=== PATIENT | male | born 1950 | race Caucasian/White ===

== ENCOUNTER 2017-03-02 09:00 | Inpatient (IN) ==
[2017-03-02] MEDS ORDERED: SODIUM CHLORIDE 0.9% 1,000 ML IV STA (09:18)
--- NOTE | 2017-03-02 09:27 | Emergency Department Note ---
Sukhdev Parker Gwan, am scribing for, and in the presence of, Juan José Paul MD 09:22 . Beverly Parker James D, MD, personally performed the services described in this documentation, ascribed by Charito Santizo in my presence, and it is both accurate and complete 926 . Arrival - Arrival Chief Complaint: Fall Stated Complaint: fall ED Nursing Triage Note: Pt states that he tripped and fell on his walker during the night - pt states that he was on the floor for several hours and states that he was found by his phone manager - pt is awake and alert at time of arrival and denies any pain Mode of Arrival: Stretcher Limitations: No Limitations Source: Patient, Old Records Reviewed, RN Notes Reviewed Time Seen by Provider: 03/02/17 09:15 - History of Present Illness HPI Narrative: Patient is an ill appearing 66 y/o white male who presents to the ED for further evaluation s/p fall at home last night. Patient stated that he tripped over his walker and causing him to injure bilateral knees. He confirmed that he was on the floor for several hours until his phone manager found him and alerted EMS. He denies any dysuria or pain in his hips. He confirmed that he has generalized soreness. Patient is followed by Dr. Blandon for Parkinson's Disease and his PCP is Dr. Douglas. No other problems/complaints reported in ED. Onset (ago): hour(s) Consistency: constant Severity: moderate Allergies/Adverse Reactions: Allergies Allergy/AdvReac Type Severity Reaction Status Date / Time acetaminophen Allergy RASH Verified 05/01/16 06:22 [From Darvocet-N] azithromycin [From Zithromax] Allergy RASH Verified 05/01/16 06:22 clarithromycin [From Biaxin] Allergy RASH Verified 03/02/17 09:07 Penicillins Allergy RASH Verified 05/01/16 06:22 propoxyphene Allergy RASH Verified 05/01/16 06:22 [From Darvocet-N] Sulfa (Sulfonamide Allergy RASH Verified 05/01/16 06:22 Antibiotics) sulfamethoxazole Allergy RASH Verified 05/01/16 06:22 [From Bactrim] trimethoprim [From Bactrim] Allergy RASH Verified 05/01/16 06:22 codeine AdvReac Unknown/Unable Verified 05/01/16 06:22 to obtain Zolpidem [From Ambien] AdvReac Hallucinati Verified 05/01/16 06:22 ng Home Medications: Home Medications Medication Instructions Recorded Confirmed Type Ezetimibe [Zetia] 10 mg PO DAILY 02/03/15 10/31/16 History Levothyroxine Sodium 112 mcg PO DAILY 02/03/15 10/31/16 History buPROPion XL [Wellbutrin Xl] 300 mg PO QAM 02/03/15 10/31/16 History Multivitamin [Multivitamins] 1 each PO DAILY 05/01/16 10/31/16 History Carbidopa/Levodopa Cr 50-200 1 tablet PO TID #90 tablet 05/06/16 10/31/16 Rx [Sinemet Cr 50-200] Docusate Sodium Cap [Colace Cap] 100 mg PO BID capsule 05/06/16 10/31/16 Rx Pramipexole [Mirapex] 1 mg PO TID #90 tablet 05/06/16 10/31/16 Rx Rasagiline [Azilect] 1 mg PO DAILY #60 tablet 05/06/16 10/31/16 Rx Spironolactone [Aldactone] 25 mg PO BID #60 tablet 10/30/16 10/31/16 Rx Ascorbic Acid Tab [Vitamin C Tab] 500 mg PO QAM 10/31/16 10/31/16 History Aspirin EC Tab 81 mg PO QAM 10/31/16 10/31/16 History Furosemide [Furosemide] 20 mg PO DAILY PRN 10/31/16 10/31/16 History Tamsulosin HCl 0.4 mg PO 1600 10/31/16 10/31/16 History traZODone [Desyrel] 50 mg PO BEDTIME 10/31/16 10/31/16 History Doxycycline Hyclate 100 mg PO BID #20 capsule 01/14/17 Rx Ondansetron Odt Tab [Zofran Odt] 4 mg PO Q8H PRN #10 tablet 01/14/17 Rx Review of System - Review of System 12 point system: reviewed and no additional remarkable complaints except as stated - Review of System Constitutional: Absent: chills, fever Eyes: Absent: discharge Head/Ears/Nose/Throat: Absent: earache Respiratory: Absent: cough Cardiovascular: Absent: chest pain Gastrointestinal: Absent: abdominal pain, nausea, vomiting, diarrhea Genitourinary male: Absent: urgency, frequency Musculoskeletal: Present: as per HPI, other (both knees ). Absent: arm pain, back pain, leg pain, neck pain Medical,Surgical,& Family Hx - Medical History Cardio: History of: Hypertension Psychological: History of: Anxiety Disorders, Bipolar Disorder Neurology: History of: Brain Aneurysm, Parkinson's Disease No history of: Seizures Endocrine: History of: Thyroid Disorder (hypothyroidism) Rheumatology: History of;: Gout Respiratory: History of: Asthma Genitourinary: History of: Prostate Problems Gastrointestinal: History of: GERD Hematology: No history of: Blood Transfusion Reaction Other: No history of: Anesthesia Reactions, Cancer - Surgical History Cardiac Surgeries: Patient Denies: Cardiac Catheterization Thoracic Surgeries: Patient denies;: Organ Transplant, Lobectomy Neurologic Surgeries: Surgical HX of: Brain Aneurysm Patient denies: Neurologic Surgery HEENT Surgeries: Surgical HX of: Tonsilectomy & Adenoidectomy Patient denies: Eye Surgery Abdominal Surgeries: Surgical HX of: Cholecystectomy, Colonoscopy Reproductive Surgeries: Patient denies;: Genitourinary Surgery Orthopedic Surgeries: Patient denies;: Orthopedic Surgery - Family History Family History: Denies;: Family Anesthesia Reaction, Family Cancer, Family Diabetes, Family Heart Disease, Family Hypertension, Family Psychiatric Problems, Family Stroke - Social History Smoking Status: Former smoker Exam Physical Examination: GENERAL: This is a ill appearing white male in no apparent distress. VITAL SIGNS: HEENT: Head is normocephalic and atraumatic. Pupils are equally round and reactive to light. Extraocular movement are intact. Oropharynx is benign with dry mucous membranes. NECK: Neck is soft and supple without tenderness. There are no masses. There is no lymphadenopathy. LUNGS: Lungs are clear to auscultation bilaterally. Chest rises symmetrically. There is no chest wall tenderness. CV: Heart is regular rate and rhythm without murmurs, rubs, or gallops. ABDOMEN: Abdomen is soft, non-tender to palpation. There are no abnormal masses palpated. There is no organomegaly. Bowel sounds are present and active. SKIN: Skin is warm and dry. No rash. EXTREMITIES: Patient has full range of motion without tenderness. Patient has erythema to bilateral knees. Heel cord shortening bilaterally. NEUROLOGIC: Awake, alert, and oriented x4. Cranial nerves II through XII are grossly intact. There are no motorsensory deficits. Muscle stiffness bilaterally. PSYCHIATRIC: Normal affect. Normal mood. Vital Signs: Vital Signs Temperature 99.1 F 03/02/17 09:29 Pulse Rate 104 H 03/02/17 09:29 Respiratory Rate 20 03/02/17 09:29 Blood Pressure 144/99 03/02/17 09:29 O2 Sat by Pulse Oximetry 94 L 03/02/17 09:22 Course - Consultations Consultation #1: Discussed with Dr. Douglas. Patient will be admitted to his service. Time: 13:22 Results - Labs CBC & BMP: 03/02/17 09:38 03/02/17 09:38 Lab Results: I have reviewed the patients labs Labs: Laboratory Tests 03/02/17 03/02/17 09:38 09:38 WBC 13.1 H RBC 3.95 Hgb 12.2 L Hct 36.2 L Plt Count 410 H MPV 8.8 L Neut % (Auto) 81.1 H Lymph % (Auto) 9.5 L Neut # (Auto) 10.6 H Lymph # (Auto) 1.2 L Dillon # (Auto) 1.0 H Urine pH 5.0 Ur Specific [place] 1.014 Urine Blood Moderate Urine Urobilinogen < 2.0 H Urine RBC 4 Urine WBC 1 Laboratory Tests 03/02/17 09:38 Sodium 139 Potassium 3.7 Chloride 104 Carbon Dioxide 26 BUN 17 Creatinine 1.00 Glucose 109 H Disposition Clinical Impression: Parkinsons disease, Fall at home, Dehydration Case discussed with: patient Disposition: Still a Patient Condition: Stable
[2017-03-02 10:00] LABS: Basophils # 0.1 10*3/uL (0.0-0.2); Basophils % 0.5 % (0.0-0.8); Eosinophils # 0.1 10*3/uL (0.0-0.87); Eosinophils % 0.6 % (0.00-10.9); Hematocrit 36.2 VOL% (42.0-52.0); Hemoglobin 12.2 GM/DL (14.0-18.0); Immature Granulocytes % 0.4 %; Immature Granulocytes Absolute 0.05 #; Lymphocytes # 1.2 10*3/uL (1.4-4.0); Lymphocytes % 9.5 % (21.2-54.2); Mean Corpuscular HGB Conc 33.7 GM/DL (32-36); Mean Corpuscular Hemoglobin 31 PG (27-34); Mean Corpuscular Volume 91.6 FL (87-102); Mean Platelet Volume 8.8 FL (9.6-12.0); Monocytes % 7.9 % (1.7-12.7); Neutrophils # 10.6 10*3/uL (1.4-7.4); Neutrophils % 81.1 % (38.7-73.9); Platelet Count 410 T/CUMM (130-400); Red Blood Count 3.95 MC/CUMM (3.8-5.5); Red Cell Distribution Width 14.5 % (9.3-17.3); White Blood Count 13.1 T/CUMM (4-12)
[2017-03-02 10:08] LABS: Apearance,Urine CLEAR (Clear); Bilirubin,Urine Negative (Negative); Blood, Urine Moderate mg/dL (Negative); Glucose,Urine (UA) Negative (Negative); Ketones,Urine Negative (Negative); Mucus,Urine Occasional /LPF (Occasional); Nitrite,Urine Negative (Negative); Protein,Urine Negative; RBC,Urine 4 /HPF (0-4); Squamous Epithelial Cell,Urine Occasional /HPF (0-10); Urine Color Yellow (Yellow); Urine Specific Gravity 1.014 (1.001-1.035); Urine Urobilinogen < 2.0 EU/DL (0.2-1.0); WBC,Urine 1 /HPF (0-6)
[2017-03-02 10:29] LABS: Calcium 9.3 MG/DL (8.5-10.1); Osmolality,Calculated 279.5 MOS/KG (273-304); Potassium 3.7 MMOL/L (3.5-5.1)
[2017-03-02] MEDS ORDERED: ONDANSETRON 4 MG/2 ML VIAL IV STA (11:12)
[2017-03-02] MEDS ORDERED: ONDANSETRON 4 MG/2 ML VIAL ONE (11:12)
[2017-03-02] MEDS ORDERED: ONDANSETRON 4 MG/2 ML VIAL IV PRN (15:23)
[2017-03-02] MEDS ORDERED: ACETAMINOPHEN 325 MG TABLET PO PRN (15:23)
[2017-03-02] MEDS: SODIUM CHLORIDE 0.9% 1,000 ML IV SCH (17:00)
[2017-03-02] MEDS: ENOXAPARIN 40 MG/0.4 ML SYRINGE SUBCUT SCH (17:55)
[2017-03-02] MEDS: DOCUSATE SODIUM 100 MG CAPSULE PO SCH (20:37)
--- NOTE | 2017-03-02 21:05 | Family Practice History&Phys ---
Assessment and Plan (1) Dehydration Status: Acute Assessment and plan: 03/02/2017: We are going to hydrate him gingerly. Current Visit: Yes (2) Fall at home Status: Acute Assessment and plan: 614 17: [facility] will [facility] as he needs to be in 1 Current Visit: Yes (3) Parkinsons disease Status: Acute Assessment and plan: 614 something: Having an exacerbation and we will continue Sinemet at this time Current Visit: Yes (4) Knee pain Status: Acute Assessment and plan: 03/02/2017: Knee pain is mainly carpet canales. There is no exposed skin deeper and no bleeding Current Visit: No History of Present Illness Chief complaint: fall, severe Parkinson's disease History of present illness: Mr. Salomon is a 66 year old male Well-known to me seen in my clinic on multiple occasions. He fell earlier today and it was about 2 hours on the ground. He states that he does not hurt except on his knees where he scraped the carpet. He is somewhat rigid secondary to his Parkinson's. He has had episodes of severe exacerbations/ remissions related to this disease and he is continuing to basically deteriorate. He has remaining cognitive for the most part but it is my feelings as I told him in the past that he should be admitted to area that can monitor him closely. He is living at home by himself now with fairly regular sitters coming in to assist him with care but he needs more than this. Nonetheless he is not having any chest pain or shortness of breath. It is noted that his white count is up to 13,000 and he does have a febrile illness as well. We will put him on antibiotics. His psychologist social to look at discharge planning possibly for [facility] which is where he wants to go although I do not know whether he qualifies for that. Is not having any nausea vomiting or diarrhea. Patient does have diaper on at present. Home Medications Medication Instructions Recorded Confirmed Type Ezetimibe [Zetia] 10 mg PO QPM 02/03/15 03/02/17 History Levothyroxine Sodium 112 mcg PO DAILY 02/03/15 03/02/17 History buPROPion XL [Wellbutrin Xl] 300 mg PO QAM 02/03/15 03/02/17 History Multivitamin [Multivitamins] 2 each PO DAILY 05/01/16 03/02/17 History Carbidopa/Levodopa Cr 50-200 1 tablet PO TID #90 tablet 05/06/16 03/02/17 Rx [Sinemet Cr 50-200] Pramipexole [Mirapex] 1 mg PO TID #90 tablet 05/06/16 03/02/17 Rx Rasagiline [Azilect] 1 mg PO DAILY #60 tablet 05/06/16 03/02/17 Rx Aspirin EC Tab 81 mg PO QAM 10/31/16 03/02/17 History Tamsulosin HCl 0.4 mg PO 1600 10/31/16 03/02/17 History traZODone [Desyrel] 50 mg PO BEDTIME 10/31/16 03/02/17 History Acetaminophen Tab [Tylenol Tab] 500 mg PO Q4H 03/02/17 03/02/17 History Docusate Sodium Cap [Colace Cap] 100 mg PO QPM 03/02/17 03/02/17 History Multivitamin [Multivitamins] 2 tablet PO DAILY 03/02/17 03/02/17 History Allergies Allergy/AdvReac Type Severity Reaction Status Date / Time acetaminophen Allergy RASH Verified 05/01/16 06:22 [From Darvocet-N] azithromycin [From Zithromax] Allergy RASH Verified 05/01/16 06:22 clarithromycin [From Biaxin] Allergy RASH Verified 03/02/17 09:07 Penicillins Allergy RASH Verified 05/01/16 06:22 propoxyphene Allergy RASH Verified 05/01/16 06:22 [From Darvocet-N] Sulfa (Sulfonamide Allergy RASH Verified 05/01/16 06:22 Antibiotics) sulfamethoxazole Allergy RASH Verified 05/01/16 06:22 [From Bactrim] trimethoprim [From Bactrim] Allergy RASH Verified 05/01/16 06:22 codeine AdvReac Unknown/Unable Verified 05/01/16 06:22 to obtain Zolpidem [From Ambien] AdvReac Hallucinati Verified 05/01/16 06:22 ng 12 point system: reviewed and no additional remarkable complaints except as stated - Constitutional Constitutional: Present: fatigue - EENT Eyes: Absent: blurry vision Ears: Absent: ear pain Nose, mouth and throat: Absent: neck mass - Cardiovascular Cardiovascular: Absent: claudication - Respiratory Respiratory: Present: snoring. Absent: wheezing - Gastrointestinal Gastrointestinal: Absent: abdominal pain, fecal incontinence - Genitourinary Genitourinary: Absent: dysuria, scrotal swelling - Musculoskeletal Musculoskeletal: Absent: arthralgias - Neurological Neurological: Present: frequent falls. Absent: abnormal speech Medical,Surgical,& Family Hx - Medical History Cardio: History of: Hypertension Psychological: History of: Anxiety Disorders, Bipolar Disorder Neurology: History of: Brain Aneurysm, Parkinson's Disease No history of: Seizures Endocrine: History of: Thyroid Disorder (hypothyroidism) Rheumatology: History of;: Gout Respiratory: History of: Asthma Genitourinary: History of: Prostate Problems Gastrointestinal: History of: GERD Hematology: No history of: Blood Transfusion Reaction Other: No history of: Anesthesia Reactions, Cancer - Surgical History Cardiac Surgeries: Patient Denies: Cardiac Catheterization Thoracic Surgeries: Patient denies;: Organ Transplant, Lobectomy Neurologic Surgeries: Surgical HX of: Brain Aneurysm Patient denies: Neurologic Surgery HEENT Surgeries: Surgical HX of: Tonsilectomy & Adenoidectomy Patient denies: Eye Surgery Abdominal Surgeries: Surgical HX of: Cholecystectomy, Colonoscopy Reproductive Surgeries: Patient denies;: Genitourinary Surgery Orthopedic Surgeries: Patient denies;: Orthopedic Surgery - Family History Family History: Denies;: Family Anesthesia Reaction, Family Cancer, Family Diabetes, Family Heart Disease, Family Hypertension, Family Psychiatric Problems, Family Stroke - Social History Smoking Status: Former smoker Frequency of Alcohol Use: None Type of Drug Use: None Exam - Constitutional Vitals: Period Temp Pulse Resp BP Sys/Johns Pulse Ox Last 24 Hr 99.1 F-100.4 F 95-112 20-27 113-177/59-108 90-98 Exam: Generally average sized man. He is alert he does answer all questions appropriately but he got severe Parkinson's and is having an exacerbation with significant rigidity. HEENT neck is supple trachea midline no difficulty with breathing Lungs clear except for a few basal rales Cardiovascular rate regular no gallop or rub there is 1/6 systolic ejection murmur Abdomen soft nondistended Extremities some mild generalized edema but no significant rashes appreciated does have PVD goes on. Results - Labs CBC & BMP: 03/02/17 09:38 03/02/17 09:38
[2017-03-02] MEDS: cefTRIAXone 1,000 MG in SODIUM CHLORIDE 0.9% 100 ML IV SCH (23:31)
[2017-03-02] MEDS: traZODone 50 MG TABLET PO SCH (23:31)
[2017-03-03] MEDS: SODIUM CHLORIDE 0.9% 1,000 ML IV SCH ×3 (06:51→18:20)
[2017-03-03] MEDS: LEVOTHYROXINE 112 MCG TABLET PO SCH (06:51)
[2017-03-03] MEDS ORDERED: COLCHICINE 0.6 MG TABLET PO ONE (08:04)
--- NOTE | 2017-03-03 08:41 | Family Practice Progress Note ---
Family Practice - PN: Subj Interval history: Patient seen this morning. He is very alert and oriented still having difficulty moving in bed. He is unable to get out of the bed at this time and having Parkinson's exacerbation. Does feel a little warm his temperature slightly up and about 99.8. He has fairly severe pain in his left ankle which may be gout. I do plan on checking uric acid on him but in the meantime we will give him a steroid and wound cultures and see if this will help. No nausea vomiting or diarrhea. He admits he is eating well with assistance. Denies any chest pain or shortness of breath at present. Patient is very dependent. We are going to get social worker clinical to assist us with placement. I do not again think the patient should go home Exam (Progress Note) - Constitutional Vitals: Period Temp Pulse Resp BP Sys/Johns Pulse Ox Last 24 Hr 96.6 F-100.4 F 95-112 18-27 113-177/59-108 90-98 Exam: Generally average sized man. He is alert he does answer all questions appropriately but he continues to have severe Parkinson's and is having an exacerbation with significant rigidity. HEENT neck is supple trachea midline no difficulty with breathing Lungs clear except for a few basal rales Cardiovascular rate regular no gallop or rub there is 1/6 systolic ejection murmur Abdomen soft nondistended Extremities some mild generalized edema but no significant rashes appreciated. Patient does have soreness of his left ankle in particular. I am concerned he may have gout or inflammatory arthritis. Results - Labs CBC & BMP: 03/02/17 09:38 03/02/17 09:38 Assessment and Plan (1) Dehydration Status: Acute Assessment and plan: 03/02/2017: We are going to hydrate him gingerly. 03/03/2017. This is improving significantly. The patient is now taking fluids on his own Current Visit: Yes (2) Fall at home Status: Acute Assessment and plan: 614 17: Teresa will accept placement in a retirement as he needs to be in 1 03/03/2017: Patient is still has a little knee pain but not as bad. He is complaining of pain in his left ankle as noted above. He states he did not hurt the ankle in the fall the looks like inflammation secondary to an arthritic process Current Visit: Yes (3) Parkinsons disease Status: Acute Assessment and plan: 614 something: Having an exacerbation and we will continue Sinemet at this time 03/03/2017 this is chronic and waxes and wanes Current Visit: Yes (4) Knee pain Status: Resolved Assessment and plan: 03/02/2017: Knee pain is mainly carpet canales. There is no exposed skin deeper and no bleeding Current Visit: No (5) Inflammatory arthritis Status: Acute Assessment and plan: 03/03/2017: None given patient steroid and culture sensitivity we cannot get this under control Current Visit: Yes
[2017-03-03] MEDS: PANTOPRAZOLE 40 MG TABLET PO SCH (10:46)
[2017-03-03] MEDS: PRAMIPEXOLE 1 MG TABLET PO SCH ×3 (10:47→20:52)
[2017-03-03] MEDS: RASAGILINE 0.5 MG TABLET PO SCH (10:47)
[2017-03-03] MEDS: ASPIRIN EC 81 MG TABLET PO SCH (10:48)
[2017-03-03] MEDS: MULTIVITAMIN (CENTRUM) TABLET PO SCH (10:48)
[2017-03-03] MEDS: DOCUSATE SODIUM 100 MG CAPSULE PO SCH ×2 (10:49→20:53)
[2017-03-03] MEDS: methylPREDNISolone SOD SUC 125 MG/2 ML VIAL IV SCH ×2 (10:50→16:32)
[2017-03-03] MEDS: CARBIDOPA/LEVODOPA CR 50-200 MG TABLET PO SCH ×3 (11:58→20:52)
[2017-03-03] MEDS: TAMSULOSIN 0.4 MG CAPSULE PO SCH (16:31)
[2017-03-03] MEDS: ENOXAPARIN 40 MG/0.4 ML SYRINGE SUBCUT SCH (16:31)
[2017-03-03] MEDS: EZETIMIBE 10 MG TABLET PO SCH (18:16)
[2017-03-03] MEDS: traZODone 50 MG TABLET PO SCH (20:52)
[2017-03-03] MEDS: cefTRIAXone 1,000 MG in SODIUM CHLORIDE 0.9% 100 ML IV SCH (20:59)
[2017-03-04] MEDS: methylPREDNISolone SOD SUC 125 MG/2 ML VIAL IV SCH ×3 (02:22→16:35)
[2017-03-04] MEDS: SODIUM CHLORIDE 0.9% 1,000 ML IV SCH ×3 (02:23→16:34)
[2017-03-04] MEDS: LEVOTHYROXINE 112 MCG TABLET PO SCH (06:14)
[2017-03-04 06:28] LABS: Basophils % 0.1 % (0.0-0.8); Hematocrit 34.5 VOL% (42.0-52.0); Hemoglobin 11.3 GM/DL (14.0-18.0); Immature Granulocytes % 0.7 %; Immature Granulocytes Absolute 0.09 #; Lymphocytes # 0.9 10*3/uL (1.4-4.0); Lymphocytes % 6.8 % (21.2-54.2); Mean Corpuscular HGB Conc 32.8 GM/DL (32-36); Mean Corpuscular Hemoglobin 30 PG (27-34); Mean Corpuscular Volume 92.5 FL (87-102); Mean Platelet Volume 9.2 FL (9.6-12.0); Monocytes # 0.6 10*3/uL (0.11-0.8); Monocytes % 4.3 % (1.7-12.7); Neutrophils # 11.8 10*3/uL (1.4-7.4); Neutrophils % 88.1 % (38.7-73.9); Platelet Count 378 T/CUMM (130-400); Red Blood Count 3.73 MC/CUMM (3.8-5.5); Red Cell Distribution Width 14.5 % (9.3-17.3); White Blood Count 13.4 T/CUMM (4-12)
[2017-03-04 07:13] LABS: Calcium 8.8 MG/DL (8.5-10.1); Magnesium 2.3 MG/DL (1.8-2.4); Osmolality,Calculated 281.5 MOS/KG (273-304); Uric Acid 8.4 MG/DL (3.5-7.2)
[2017-03-04] MEDS: ASPIRIN EC 81 MG TABLET PO SCH (09:15)
[2017-03-04] MEDS: CARBIDOPA/LEVODOPA CR 50-200 MG TABLET PO SCH ×3 (09:15→22:06)
[2017-03-04] MEDS: MULTIVITAMIN (CENTRUM) TABLET PO SCH (09:15)
[2017-03-04] MEDS: PANTOPRAZOLE 40 MG TABLET PO SCH (09:15)
[2017-03-04] MEDS: RASAGILINE 0.5 MG TABLET PO SCH (09:15)
[2017-03-04] MEDS: DOCUSATE SODIUM 100 MG CAPSULE PO SCH ×2 (09:15→22:06)
[2017-03-04] MEDS: PRAMIPEXOLE 1 MG TABLET PO SCH ×3 (09:15→22:05)
--- NOTE | 2017-03-04 13:31 | Family Practice Progress Note ---
Family Practice - PN: Subj Interval history: Patient seen this morning. We had long discussion concerning his disposition. He is still getting physical and occupational therapy. We are trying to make so that he can either go back home or car, and rehabilitation but I suspect she is going to need some kind of swelling been/rehabilitation situation before he makes at home. We've had this issue on the past on multiple occasions. I really don't think he needs to be going back home, but he is very cognitive and insists not to be put in a senior living or other long-term unit. Nonetheless, vital signs are stable. He does have a slight elevation of white count 13.4 but he is getting steroids which are probably contributing this. I do have him on antibiotics. I'm going to decrease the steroid dose. We are going to continue physical therapy at this time and maintain other current medications Exam (Progress Note) - Constitutional Vitals: Period Temp Pulse Resp BP Sys/Johns Pulse Ox Last 24 Hr 97.5 F-100 F 83-101 14-20 115-143/65-84 87-93 Exam: Generally average sized man. He is alert and continues to have severe Parkinson 's and is very slowly improving with symptoms HEENT neck is supple trachea midline no difficulty with breathing Lungs clear except for a few basal rales Cardiovascular rate regular no gallop or rub there is 1/6 systolic ejection murmur Abdomen soft nondistended Extremities some mild generalized edema but no significant rashes appreciated. Left ankle is some improved. Results - Labs CBC & BMP: 03/04/17 04:47 03/04/17 04:47 Assessment and Plan (1) Dehydration Status: Acute Assessment and plan: 03/02/2017: We are going to hydrate him gingerly. 03/03/2017. This is improving significantly. The patient is now taking fluids on his own. 03/04/17: Better hydrated. We'll decrease or even stop IV fluids soon Current Visit: Yes (2) Fall at home Status: Acute Assessment and plan: 614 17: Teresa will accept placement in a senior living as he needs to be in 1 03/03/2017: Patient is still has a little knee pain but not as bad. He is complaining of pain in his left ankle as noted above. He states he did not hurt the ankle in the fall the looks like inflammation secondary to an arthritic process. 03/04/17: Patient is very high risk fall and if he is not willing to go to a swing bed/senior living will discharge him AGAINST MEDICAL ADVICE to his home Current Visit: Yes (3) Parkinsons disease Status: Acute Assessment and plan: 614 something: Having an exacerbation and we will continue Sinemet at this time 03/03/2017 this is chronic and waxes and wanes. 03/04/17. Patient is slowly improving from this acute exacerbation Current Visit: Yes (4) Knee pain Status: Resolved Assessment and plan: 03/02/2017: Knee pain is mainly carpet canales. There is no exposed skin deeper and no bleeding. 03/04/17. The knees are not hurting. There is much as they were 2 days ago Current Visit: No (5) Inflammatory arthritis Status: Acute Assessment and plan: 03/03/2017: None given patient steroid and culture sensitivity we cannot get this under control Current Visit: Yes
[2017-03-04] MEDS: TAMSULOSIN 0.4 MG CAPSULE PO SCH (15:18)
[2017-03-04] MEDS: ENOXAPARIN 40 MG/0.4 ML SYRINGE SUBCUT SCH (15:19)
[2017-03-04] MEDS: EZETIMIBE 10 MG TABLET PO SCH (18:22)
[2017-03-04] MEDS: traZODone 50 MG TABLET PO SCH (22:05)
[2017-03-04] MEDS: cefTRIAXone 1,000 MG in SODIUM CHLORIDE 0.9% 100 ML IV SCH (22:06)
[2017-03-05] MEDS: methylPREDNISolone SOD SUC 125 MG/2 ML VIAL IV SCH ×3 (01:40→15:35)
[2017-03-05] MEDS: SODIUM CHLORIDE 0.9% 1,000 ML IV SCH ×3 (01:44→17:13)
[2017-03-05] MEDS ORDERED: ACETAMINOPHEN 500 MG TABLET PO PRN (03:27)
[2017-03-05] MEDS: LEVOTHYROXINE 112 MCG TABLET PO SCH (07:23)
[2017-03-05] MEDS: RASAGILINE 0.5 MG TABLET PO SCH (08:59)
[2017-03-05] MEDS: MULTIVITAMIN (CENTRUM) TABLET PO SCH (08:59)
[2017-03-05] MEDS: PANTOPRAZOLE 40 MG TABLET PO SCH (08:59)
[2017-03-05] MEDS: DOCUSATE SODIUM 100 MG CAPSULE PO SCH ×2 (08:59→22:38)
[2017-03-05] MEDS: CARBIDOPA/LEVODOPA CR 50-200 MG TABLET PO SCH ×3 (08:59→22:38)
[2017-03-05] MEDS: ASPIRIN EC 81 MG TABLET PO SCH (08:59)
[2017-03-05] MEDS: PRAMIPEXOLE 1 MG TABLET PO SCH ×3 (08:59→22:38)
--- NOTE | 2017-03-05 12:09 | Family Practice Progress Note ---
Family Practice - PN: Subj Interval history: Patient seen this morning. He is doing some better. He is actually sitting up in the chair and is already eaten breakfast. He is alert and oriented answers all questions appropriately is very cognitive. No fever chills nausea vomiting or diarrhea states she is much improved. Parkinson's symptoms have quelled somewhat. We will continue to monitor Exam (Progress Note) - Constitutional Vitals: Period Temp Pulse Resp BP Sys/Johns Pulse Ox Last 24 Hr 96.8 F-98.5 F 75-90 16-22 119-168/60-94 92-97 Exam: Generally average sized man. He is alert and continues to have Parkinson's, but it has gotten significantly better today HEENT neck is supple trachea midline no difficulty with breathing Lungs clear except for a few basal rales Cardiovascular rate regular no gallop or rub there is 1/6 systolic ejection murmur Abdomen soft nondistended Extremities some mild generalized edema but no significant rashes appreciated. Left ankle is some improved. Results - Labs CBC & BMP: 03/04/17 04:47 03/04/17 04:47 Assessment and Plan (1) Dehydration Status: Acute Assessment and plan: 03/02/2017: We are going to hydrate him gingerly. 03/03/2017. This is improving significantly. The patient is now taking fluids on his own. 03/04/17: Better hydrated. We'll decrease or even stop IV fluids soon Current Visit: Yes (2) Fall at home Status: Acute Assessment and plan: 614 17: Teresa will accept placement in a long term as he needs to be in 1 03/03/2017: Patient is still has a little knee pain but not as bad. He is complaining of pain in his left ankle as noted above. He states he did not hurt the ankle in the fall the looks like inflammation secondary to an arthritic process. 03/04/17: Patient is very high risk fall and if he is not willing to go to a swing bed/long term will discharge him AGAINST MEDICAL ADVICE to his home Current Visit: Yes (3) Parkinsons disease Status: Acute Assessment and plan: 614 something: Having an exacerbation and we will continue Sinemet at this time 03/03/2017 this is chronic and waxes and wanes. 03/04/17. Patient is slowly improving from this acute exacerbation [id number]. Parkinson's is improving. We are going to have to get physical therapy to do a little further evaluation. May need another day to evaluate whether he needs swelling better not Current Visit: Yes (4) Inflammatory arthritis Status: Acute Assessment and plan: 03/03/2017: None given patient steroid and culture sensitivity we cannot get this under control Current Visit: Yes
[2017-03-05] MEDS: TAMSULOSIN 0.4 MG CAPSULE PO SCH (15:27)
[2017-03-05] MEDS: ENOXAPARIN 40 MG/0.4 ML SYRINGE SUBCUT SCH (15:27)
[2017-03-05] MEDS: EZETIMIBE 10 MG TABLET PO SCH (18:16)
[2017-03-05] MEDS: cefTRIAXone 1,000 MG in SODIUM CHLORIDE 0.9% 100 ML IV SCH (22:37)
[2017-03-05] MEDS: traZODone 50 MG TABLET PO SCH (22:38)
[2017-03-06] MEDS: methylPREDNISolone SOD SUC 125 MG/2 ML VIAL IV SCH ×3 (00:55→17:15)
[2017-03-06] MEDS: SODIUM CHLORIDE 0.9% 1,000 ML IV SCH ×3 (00:57→15:20)
[2017-03-06 02:41] LABS: Basophils % 0.1 % (0.0-0.8); Hematocrit 35.9 VOL% (42.0-52.0); Hemoglobin 11.6 GM/DL (14.0-18.0); Immature Granulocytes % 0.9 %; Immature Granulocytes Absolute 0.13 #; Lymphocytes # 1.1 10*3/uL (1.4-4.0); Lymphocytes % 7.4 % (21.2-54.2); Mean Corpuscular HGB Conc 32.3 GM/DL (32-36); Mean Corpuscular Hemoglobin 30 PG (27-34); Mean Corpuscular Volume 92.5 FL (87-102); Mean Platelet Volume 9.2 FL (9.6-12.0); Monocytes # 0.6 10*3/uL (0.11-0.8); Monocytes % 4.1 % (1.7-12.7); Neutrophils % 87.5 % (38.7-73.9); Platelet Count 433 T/CUMM (130-400); Red Blood Count 3.88 MC/CUMM (3.8-5.5); Red Cell Distribution Width 14.7 % (9.3-17.3); White Blood Count 14.8 T/CUMM (4-12)
[2017-03-06 03:08] LABS: Calcium 8.2 MG/DL (8.5-10.1); Magnesium 2.3 MG/DL (1.8-2.4); Potassium 4.4 MMOL/L (3.5-5.1)
[2017-03-06] MEDS: LEVOTHYROXINE 112 MCG TABLET PO SCH (06:10)
[2017-03-06] MEDS: CARBIDOPA/LEVODOPA CR 50-200 MG TABLET PO SCH ×3 (09:43→20:17)
[2017-03-06] MEDS: RASAGILINE 0.5 MG TABLET PO SCH (09:43)
[2017-03-06] MEDS: MULTIVITAMIN (CENTRUM) TABLET PO SCH (09:43)
--- NOTE | 2017-03-06 09:43 | Family Practice Progress Note ---
Family Practice - PN: Subj Interval history: Patient seen this morning continues to improve. His blood pressure still high and will going to add losartan his regimen. He is starting to have decreasing symptoms of Parkinson's. We are going to decrease his steroid dose to daily. Does have a little wheezing, however nothing to put him on some duo nebs. Exam (Progress Note) - Constitutional Vitals: Period Temp Pulse Resp BP Sys/Johns Pulse Ox Last 24 Hr 97.4 F-97.6 F 73-98 18-22 116-169/76-107 92-97 Exam: Physical exam is mostly unchanged from yesterday except the patient is getting a little stronger. Does have a little wheezing respiratory fischer and I am going to start him on some DuoNeb Results - Labs CBC & BMP: 03/06/17 01:59 03/06/17 01:59 Assessment and Plan (1) Dehydration Status: Acute Assessment and plan: 03/02/2017: We are going to hydrate him gingerly. 03/03/2017. This is improving significantly. The patient is now taking fluids on his own. 03/04/17: Better hydrated. We'll decrease or even stop IV fluids soon Current Visit: Yes (2) Fall at home Status: Acute Assessment and plan: 614 17: Teresa will accept placement in a [facility] as he needs to be in 1 03/03/2017: Patient is still has a little knee pain but not as bad. He is complaining of pain in his left ankle as noted above. He states he did not hurt the ankle in the fall the looks like inflammation secondary to an arthritic process. 03/04/17: Patient is very high risk fall and if he is not willing to go to a swing bed/usp will discharge him AGAINST MEDICAL ADVICE to his home 03/06/2017 much improved his knee pain is better Current Visit: Yes (3) Parkinsons disease Status: Acute Assessment and plan: 614 something: Having an exacerbation and we will continue Sinemet at this time 03/03/2017 this is chronic and waxes and wanes. 03/04/17. Patient is slowly improving from this acute exacerbation 7016. Parkinson's is improving. We are going to have to get physical therapy to do a little further evaluation. May need another day to evaluate whether he needs swelling better not Current Visit: Yes (4) Inflammatory arthritis Status: Acute Assessment and plan: 03/03/2017: None given patient steroid and culture sensitivity we cannot get this under control Current Visit: Yes (5) Wheezing Status: Acute Assessment and plan: 03/06/2017: Patient has improved but is wheezing some. Although he has been on steroids I do want to decrease the dose to normal. Will DuoNeb nebulizer Current Visit: Yes
[2017-03-06] MEDS: PRAMIPEXOLE 1 MG TABLET PO SCH ×3 (09:44→20:16)
[2017-03-06] MEDS ORDERED: ALBUTEROL/IPRATROPIUM 3 ML NEB RESP TX PRN (09:44)
[2017-03-06] MEDS: DOCUSATE SODIUM 100 MG CAPSULE PO SCH ×2 (09:44→20:17)
[2017-03-06] MEDS: PANTOPRAZOLE 40 MG TABLET PO SCH (09:44)
[2017-03-06] MEDS: ASPIRIN EC 81 MG TABLET PO SCH (09:44)
[2017-03-06] MEDS: ENOXAPARIN 40 MG/0.4 ML SYRINGE SUBCUT SCH (17:16)
[2017-03-06] MEDS: TAMSULOSIN 0.4 MG CAPSULE PO SCH (17:16)
[2017-03-06] MEDS: EZETIMIBE 10 MG TABLET PO SCH (18:56)
[2017-03-06] MEDS: traZODone 50 MG TABLET PO SCH (20:16)
[2017-03-06] MEDS: cefTRIAXone 1,000 MG in SODIUM CHLORIDE 0.9% 100 ML IV SCH (22:57)
[2017-03-07] MEDS: methylPREDNISolone SOD SUC 125 MG/2 ML VIAL IV SCH ×2 (01:27→08:32)
[2017-03-07] MEDS: LEVOTHYROXINE 112 MCG TABLET PO SCH (06:54)
[2017-03-07] MEDS ORDERED: cloNIDine 0.1 MG TABLET PO PRN (07:49)
[2017-03-07] MEDS: MULTIVITAMIN (CENTRUM) TABLET PO SCH (08:30)
[2017-03-07] MEDS: ASPIRIN EC 81 MG TABLET PO SCH (08:30)
[2017-03-07] MEDS: RASAGILINE 0.5 MG TABLET PO SCH (08:30)
[2017-03-07] MEDS: CARBIDOPA/LEVODOPA CR 50-200 MG TABLET PO SCH (08:31)
[2017-03-07] MEDS: DOCUSATE SODIUM 100 MG CAPSULE PO SCH (08:32)
[2017-03-07] MEDS: PRAMIPEXOLE 1 MG TABLET PO SCH (08:32)
[2017-03-07] MEDS: PANTOPRAZOLE 40 MG TABLET PO SCH (08:32)
[2017-03-07] MEDS ORDERED: METOPROLOL TARTRATE 25 MG TABLET PO SCH (09:00)
--- NOTE | 2017-03-07 13:25 | Discharge Summary ---
Hospital Course - Hospital Course Hospital Course: Patient came in to the hospital per EMS to the ER after having sustained a fall. He did have some superficial knee injuries but this resolved fairly quick. He has severe Parkinson's like symptoms with excessive tremor, stiffness and slow weaning actions. He was unable to stand at the time of admission. He has had these exacerbations and remissions of this disease in the past. I have tried to get him in to long-term care but he absolutely refuses and does so now. He is very cognitive and answers all questions. He was a little dehydrated when he was found and we gave him fluids. He also had during the course of hospitalization some hypertension which resolved with medication. He is in general fairly debilitated as mentioned nonetheless we will going to discharge him to swing bed for a while and then he can hopefully go back home to where he is getting some home health care as well as some sitters periodically. Diagnosis - Discharge Diagnosis (1) Dehydration Status: Acute (2) Fall at home Status: Acute (3) Parkinsons disease Status: Acute (4) Inflammatory arthritis Status: Acute (5) Wheezing Status: Acute Specialty Discharge - Follow Up or Referrals Follow up with: Marquise Douglas DO [Primary Care Provider] - (1 week post discharge from [facility] ) Discharge Plan - Discharge Data Disposition: Disch/Xfer-Ip Rehab Fac Condition at Discharge: Stable Discharge Diet: advance to your usual diet Activity: as per physical therapy, increase activity as tolerated Hygiene: no restrictions Weight Bearing at Discharge: weight bear as tolerated Driving: other (doesn't drive) Contact your physician if you experience:: fever over 101, Shortness of breath - Discharge Medications New cloNIDine TAB [Catapres Tab] 0.1 mg PO Q1H PRN tablet PRN Reason: Blood Pressure-Increased methylPREDNISolone SOD SUC INJ [SoluMEDROL] 60 mg IV DAILY vial Metoprolol Tartrate Tab [Lopressor Tab] 25 mg PO BID tablet Albuterol/Ipratropium Neb [Duoneb] 3 ml RESP TX RT Q4H PRN PRN Reason: Shortness Of Breath/Wheezing Docusate Sodium Cap [Colace Cap] 100 mg PO BID capsule Continue buPROPion XL [Wellbutrin Xl] 300 mg PO QAM Ezetimibe [Zetia] 10 mg PO QPM Levothyroxine Sodium 112 mcg PO DAILY Carbidopa/Levodopa Cr 50-200 [Sinemet Cr 50-200] 1 tablet PO TID #90 tablet Pramipexole [Mirapex] 1 mg PO TID #90 tablet Rasagiline [Azilect] 1 mg PO DAILY #60 tablet Aspirin EC Tab 81 mg PO QAM Tamsulosin HCl 0.4 mg PO 1600 traZODone [Desyrel] 50 mg PO BEDTIME Multivitamin [Multivitamins] 2 tablet PO DAILY Acetaminophen Tab [Tylenol Tab] 500 mg PO Q4H PRN PRN Reason: Fever, Headache, Mild Pain - Follow Up or Referral Follow Up: Marquise Douglas DO [Primary Care Provider] - (1 week post discharge from [facility] ) - Forms/Instructions Exam - Constitutional Vitals: Period Temp Pulse Resp BP Sys/Johns Pulse Ox Last 24 Hr 97.7 F-97.9 F 76-96 18-28 139-172/66-112 94-97 DS: Provider Date of admission: 03/03/17 15:20 Primary care physician: Marquise Douglas DO Attending physician on admission: Marquise Douglas DO Consults: 03/02/17 15:23 Consult to Case Mgmt/Social Srvs [CONS] Routine Reason for Case Mgmt/Social Srvs: Discharge Planning Consult to Physical Therapy [CONS] Routine Reason for Physical Therapy: Neuromuscular Reeducation Start Therapy: Today 03/02/17 15:33 Consult to Dietitian [CONS] Routine Reason for Dietitian: Other 03/04/17 08:56 Consult to Occupational Therapy [CONS] Routine Reason for Occupational Therapy: Evaluate and Treat Weakness 03/04/17 08:57 Consult to Case Mgmt/Social Srvs [CONS] Routine Reason for Case Mgmt/Social Srvs: Discharge Planning Consult Comment: patient needs nsg home talk to patient Discharging clinician: Marquise Douglas DO
[2017-03-07 14:26] VITALS: BP 126/76
[2017-03-08] MEDS ORDERED: methylPREDNISolone SOD SUC 40 MG/1 ML VIAL IV SCH (09:00)
== END 2017-03-07 14:20 | DRG 57 ==
LOC: EDUNIT# → N.EDINP 09:00 → N.ED 09:00 → N.EDINP 15:10 → N.2E 15:21
PROVIDERS: ADMIT Family Medicine; ATTEND Family Medicine

== ENCOUNTER 2017-04-29 13:40 | Observation (INO) ==
[2017-04-29 14:20] LABS: Basophils # 0.1 10*3/uL (0.0-0.2); Basophils % 0.6 % (0.0-0.8); Eosinophils # 0.3 10*3/uL (0.0-0.87); Eosinophils % 2.9 % (0.00-10.9); Hematocrit 37.2 VOL% (42.0-52.0); Hemoglobin 12.5 GM/DL (14.0-18.0); Immature Granulocytes % 0.4 %; Immature Granulocytes Absolute 0.04 #; Lymphocytes # 1.7 10*3/uL (1.4-4.0); Mean Corpuscular HGB Conc 33.6 GM/DL (32-36); Mean Corpuscular Hemoglobin 30 PG (27-34); Mean Corpuscular Volume 89.4 FL (87-102); Mean Platelet Volume 8.8 FL (9.6-12.0); Monocytes # 0.6 10*3/uL (0.11-0.8); Monocytes % 6.1 % (1.7-12.7); Neutrophils # 7.3 10*3/uL (1.4-7.4); Platelet Count 411 T/CUMM (130-400); Red Blood Count 4.16 MC/CUMM (3.8-5.5); Red Cell Distribution Width 15.1 % (9.3-17.3); White Blood Count 9.9 T/CUMM (4-12)
[2017-04-29 14:32] LABS: Albumin 3.2 G/DL (3.4-5.0); Bilirubin,Total 0.5 MG/DL (0.2-1.0); Calcium 9.4 MG/DL (8.5-10.1); Osmolality,Calculated 277.5 MOS/KG (273-304); Potassium 4.3 MMOL/L (3.5-5.1); Total Protein 7.4 G/DL (6.4-8.3)
--- NOTE | 2017-04-29 14:36 | XRay Report ---
XR chest 1V portable Indication: Shortness of breath Comparison: 30 October 2016 Findings: The heart and mediastinum are normal in size and configuration. The pulmonary vascularity is normal in caliber. No lung infiltrates, effusions, pneumothorax or other abnormality is demonstrated. Impression: No acute cardiopulmonary disease. PROCEDURE INTERPRETED AT [facility] DEPARTMENT OF RADIOLOGY Final Report Signed by: Dr. Mane Vasquez
--- NOTE | 2017-04-29 15:07 | EKG Report ---
Stationary ECG Study [facility] ER Test Date: 04/29/2017 1:47:56 PM Pat Name: MILADYS BURNS Department: Room: Gender: M Ad Terminal Makeup Operator: : 1950 Requested by: Bean Noyola Order Number: [id number] Reading MD: EMELYN ZHONG Intervals Holiday Rate: 93 P: 59 [place]: 183 QRS: 5 QRSD: 90 T: 18 QT: 328 QTc: 379 Interpretive Statements SINUS RHYTHM Electronically Signed On 04-29-17 18:25:33 CDT by EMELYN ZHONG [email or web address]
--- NOTE | 2017-04-29 15:57 | Emergency Department Note ---
Misael Parker Brittany, am scribing for, and in the presence of, Kurtis Beckham MD 14:15. Chapincito Parker Doug C, MD, personally performed the services described in this documentation, ascribed by Darlene Douglas in my presence, and it is both accurate and complete [phone] . Arrival - Arrival Chief Complaint: Weakness ED Nursing Triage Note: PATIENT TO ROOM VIA EMS WITH C/O FAILURE TO THRIVE AND WEAKNESS FOR 3 DAYS. EMS STATES THEY WERE CALLED TO PATIENTS APARTMENT EARLIER TODAY FOR A FALL. THEY HELPED PATIENT OUT OF THE FLOOR AND HE SIGNED A REFUSAL. FAMILY WANTS PATIENT ADMITTED FOR REPLACEMENT TO REHAB FACILITY. Mode of Arrival: Stretcher Limitations: No Limitations Source: Patient, RN Notes Reviewed - History of Present Illness HPI Narrative: Patient is a 66-year-old white male who presents emergency room complaining of increasing weakness. Patient states she is having trouble getting up and getting about has fallen twice this week. He apparently fell earlier today but refused transport by EMS but then apparently he changes his mind and comes in for further evaluation. Patient has a history of Parkinson's disease and states it is getting worse. Patient states his appetite is poor. He has not had any fever, chills or any respiratory symptoms. He denies any urinary symptoms. He does not think he injured himself in any of his recent falls. He denies any head injury and states he did not injure his neck or his back in his fall. Allergies/Adverse Reactions: Allergies Allergy/AdvReac Type Severity Reaction Status Date / Time acetaminophen Allergy RASH Verified 04/29/17 13:49 [From Darvocet-N] azithromycin [From Zithromax] Allergy RASH Verified 04/29/17 13:49 clarithromycin [From Biaxin] Allergy RASH Verified 04/29/17 13:49 Penicillins Allergy RASH Verified 04/29/17 13:49 propoxyphene Allergy RASH Verified 04/29/17 13:49 [From Darvocet-N] Sulfa (Sulfonamide Allergy RASH Verified 04/29/17 13:49 Antibiotics) sulfamethoxazole Allergy RASH Verified 04/29/17 13:49 [From Bactrim] trimethoprim [From Bactrim] Allergy RASH Verified 04/29/17 13:49 codeine AdvReac Unknown/Unable Verified 04/29/17 13:49 to obtain Zolpidem [From Ambien] AdvReac Hallucinati Verified 04/29/17 13:49 ng Home Medications: Home Medications Medication Instructions Recorded Confirmed Type Levothyroxine Sodium 112 mcg PO QAM 02/03/15 04/29/17 History buPROPion XL [Wellbutrin Xl] 300 mg PO QAM 02/03/15 04/29/17 History Pramipexole [Mirapex] 1 mg PO TID #90 tablet 05/06/16 04/29/17 Rx Aspirin EC Tab 81 mg PO QAM 10/31/16 04/29/17 History Tamsulosin HCl 0.4 mg PO 1600 10/31/16 04/29/17 History traZODone [Desyrel] 50 mg PO BEDTIME PRN 10/31/16 04/29/17 History Acetaminophen Tab [Tylenol Tab] 500 mg PO Q4H PRN 03/02/17 04/29/17 History Multivitamin [Multivitamins] 2 tablet PO QAM 03/02/17 04/29/17 History Carbidopa/Levodopa 25-100 [Sinemet 0.5 tablet PO QID 04/29/17 04/29/17 History 25-100] Docusate Sodium 100 mg PO DAILY PRN 04/29/17 04/29/17 History Rasagiline [Azilect] 1 mg PO QAM 04/29/17 04/29/17 History busPIRone [Buspar] 10 mg PO TID 04/29/17 04/29/17 History Review of System - Review of System 12 point system: reviewed and no additional remarkable complaints except as stated - Review of System Constitutional: Present: weakness, other (multiple falls; drowsiness). Absent: chills, fever Eyes: Absent: vision change Head/Ears/Nose/Throat: Absent: nasal drainage, sore throat Respiratory: Absent: cough, respiratory distress Cardiovascular: Absent: chest pain Gastrointestinal: Present: other (decrease in appetite). Absent: abdominal pain , nausea, vomiting, diarrhea, constipation Genitourinary male: Absent: urgency, dysuria, frequency Musculoskeletal: Absent: arm pain, back pain, leg pain, neck pain Neurological: Absent: headache, numbness, paresthesias, confusion Psychiatric: Absent: anxiety, depression Hematological/Lymphatic: Absent: easy bleeding, easy bruising Medical,Surgical,& Family Hx - Medical History Cardio: History of: Hypertension Psychological: History of: Anxiety Disorders, Bipolar Disorder, Depression Neurology: History of: Brain Aneurysm, Parkinson's Disease No history of: Seizures HEENT: History of: Eye Problem (Cataract in right eye), HEENT Problems ( Cataract in right eye) No history of: Ear Problem, Dental Problems, Glaucoma, Oral Cancer Endocrine: History of: Thyroid Disorder (Hypothyroidism) Rheumatology: History of;: Gout Respiratory: History of: Asthma (As a child), Pneumonia (As a child) Genitourinary: History of: Prostate Problems (Enlarged prostate- 2009) Gastrointestinal: History of: GERD Musculoskeletal: History of: Musculoskeletal Problems (Chronic knee pain) No history of: Amputation Hematology: No history of: Blood Transfusion Reaction Other: No history of: Anesthesia Reactions, Cancer - Surgical History Cardiac Surgeries: Patient Denies: Femoral-Popliteal Bypass Graft, Cardiac Catheterization, Cardiac Surgery, Carotid Endarterectomy, Internal Defibrillator, Vascular Access Devices Thoracic Surgeries: Patient denies;: Kidney (Renal Surgery), Lithotripsy, Nephrectomy, Organ Transplant, Lobectomy Neurologic Surgeries: Surgical HX of: Brain Aneurysm Patient denies: Neurologic Surgery HEENT Surgeries: Surgical HX of: Thyroid Surgery (1999), Tonsilectomy & Adenoidectomy Patient denies: Carotid Endarterectomy, Eye Surgery Abdominal Surgeries: Surgical HX of: Cholecystectomy (1998), Colonoscopy (2015) , EGD (2004 he thinks) Patient denies: Splenectomy Reproductive Surgeries: Patient denies;: Breast Surgery, Cystoscopy, Genitourinary Surgery, Prostate Surgery, Vasectomy Orthopedic Surgeries: Surgical HX of;: Orthopedic Surgery (b/l hand surgery r/t carpal tunnel syndrome) Patient denies;: Implanted Devices, Spinal Surgery, Total Hip Replacement, Total Knee Replacement - Family History Family History: Reports;: Family Cancer (Maternal grandmother- skin cancer) Denies;: Family Anesthesia Reaction, Family Diabetes, Family Heart Disease, Family Hypertension, Family Psychiatric Problems, Family Stroke - Social History Smoking Status: Former smoker Frequency of Alcohol Use: None Type of Drug Use: None Exam Vital Signs: Vital Signs Temperature 98.0 F 04/29/17 14:40 Pulse Rate 96 H 04/29/17 14:40 Respiratory Rate 24 04/29/17 14:40 Blood Pressure 133/91 04/29/17 14:40 O2 Sat by Pulse Oximetry 95 04/29/17 13:44 - General General appearance: alert, in no apparent distress - Head Head exam: Present: atraumatic, normocephalic, normal inspection - Eye Eye exam: Present: normal appearance, PERRL, EOMI - ENT ENT exam: Present: normal exam, normal oropharynx - Neck Neck exam: Present: normal inspection, full ROM, trachea midline - Chest Chest inspection: Present: normal inspection, symmetric chest wall rise - Respiratory Respiratory exam: Present: normal lung sounds bilaterally - Cardiovascular Cardiovascular exam: Present: regular rate, normal rhythm, normal heart sounds - Abdominal Exam Abdominal exam: Present: soft, normal bowel sounds. Absent: tenderness - Extremities Exam Extremities exam: Present: normal inspection - Back Exam Back exam: Present: normal inspection - Neurological Exam Neurological exam: Present: alert, oriented X3, CN II-XII intact, other (fine resting tremor of the right hand). Absent: motor sensory deficit - Psychiatric Psychiatric exam: Present: normal affect, normal mood - Skin Skin exam: Present: warm, dry Course Course Narrative: Patient's clinical presentation, laboratory and radiograph findings were discussed with Dr. Pérez. Patient will be admitted to the service of Dr. Chester Douglas, physical therapy be consulted. I have discussed with him the need for him to go to a long-term care facility if he continues to refuse Dr. Douglas may discharge him from his services. He understands this. Results - Labs CBC & BMP: 04/29/17 14:00 04/29/17 14:00 Lab Results: I have reviewed the patients labs Labs: Laboratory Tests 04/29/17 04/29/17 14:00 14:00 WBC 9.9 RBC 4.16 Hgb 12.5 L Hct 37.2 L Plt Count 411 H MPV 8.8 L Lymph % (Auto) 17.0 L Sodium 139 Potassium 4.3 Chloride 104 Carbon Dioxide 27 BUN 14 Creatinine 1.00 Glucose 102 AST 60 H ALT 9 L Alkaline Phosphatase 121 H Albumin 3.2 L Globulin 4.2 H Albumin/Globulin Ratio 0.7 L - EKG EKG results: interpreted by DEISY, sinus rhythm (93 bpm), no acute changes - Diagnostic Findings Procedure: Chest x-ray: report reviewed by me ( No acute cardiopulmonary disease.) Disposition Clinical Impression: Recurrent falls Case discussed with: patient Disposition: Still a Patient Condition: Guarded Time of Disposition: 15:57
[2017-04-29] MEDS ORDERED: ONDANSETRON 4 MG/2 ML VIAL IV PRN (15:58)
[2017-04-29] MEDS ORDERED: SODIUM CHLORIDE 0.45% 1,000 ML IV SCH (16:00)
[2017-04-29] MEDS ORDERED: traZODone 50 MG TABLET PO PRN (16:02)
[2017-04-29 17:17] LABS: Apearance,Urine CLEAR (Clear); Bilirubin,Urine Negative (Negative); Blood, Urine Negative (Negative); Glucose,Urine (UA) Negative (Negative); Hyaline Casts,Urine 1 /LPF (0-3); Ketones,Urine 5 mg/dL (Negative); Mucus,Urine Occasional /LPF (Occasional); Nitrite,Urine Negative (Negative); Protein,Urine Negative; RBC,Urine 3 /HPF (0-4); Urine Color Yellow (Yellow); Urine Specific Gravity 1.014 (1.001-1.035); Urine Urobilinogen < 2.0 EU/DL (0.2-1.0); WBC,Urine 1 /HPF (0-6)
[2017-04-29] MEDS: ENOXAPARIN 40 MG/0.4 ML SYRINGE SUBCUT SCH (21:51)
[2017-04-29] MEDS: busPIRone 10 MG TABLET PO SCH (21:52)
[2017-04-29] MEDS: PRAMIPEXOLE 1 MG TABLET PO SCH (21:52)
[2017-04-29] MEDS: CARBIDOPA/LEVODOPA 25-100 MG TABLET PO SCH ×2 (21:53→22:03)
[2017-04-29] MEDS: DOCUSATE SODIUM 100 MG CAPSULE PO SCH (21:53)
[2017-04-30] MEDS: MORPHINE 2 MG/1 ML SYRINGE IV PRN ×2 (02:40→21:45)
[2017-04-30 03:47] LABS: Osmolality,Calculated 279.4 MOS/KG (273-304)
--- NOTE | 2017-04-30 05:43 | Family Practice History&Phys ---
Assessment and Plan (1) Recurrent falls Status: Chronic Assessment and plan: Secondary to Parkinson's, on fall precautions, continue Sinemet. Continue rest of his home medications as recommended by neurologist in the past 2. Hypothyroidism, continue Synthroid 3. Hypertension stable 4. member services coordinator consult for possible placement at swing bed or assisted living, discussed in detail with the patient about options of placement, at the time of discharge Current Visit: Yes (2) Hypertension Status: Chronic Current Visit: Yes (3) Hypothyroid Status: Chronic Current Visit: Yes (4) Parkinson's disease (tremor, stiffness, slow motion, unstable posture) Status: Chronic Current Visit: Yes History of Present Illness Chief complaint: Weakness and fall at home History of present illness: Mr. Salomon is a 66 year old male PCP: Dr. Douglas. Patient was brought into the ER by EMS, for weakness since 3-4 days, Patient admitted for weakness, recurrent falls, history of parkinsons, History obtained from the patient. history of fall around 9 PM at his home on 04/29/2017( signed refusal at the time with EMS). Patient stays alone in an apartment complex, his family and friends visit him often, uses walker and wheelchair at home. Patient has recurrent falls at home falls approximately 3-4 times per week. He feels overall weak sometimes, As per the patient the last fall he tripped at his home and hit his right knee, no head, neck, back injury, no fever. Patient does not complain of any nausea, vomiting, chest pain, shortness of breath, headaches or dizziness. Home Medications Medication Instructions Recorded Confirmed Type Levothyroxine Sodium 112 mcg PO QAM 02/03/15 04/29/17 History buPROPion XL [Wellbutrin Xl] 300 mg PO QAM 02/03/15 04/29/17 History Pramipexole [Mirapex] 1 mg PO TID #90 tablet 05/06/16 04/29/17 Rx Aspirin EC Tab 81 mg PO QAM 10/31/16 04/29/17 History Tamsulosin HCl 0.4 mg PO 1600 10/31/16 04/29/17 History traZODone [Desyrel] 50 mg PO BEDTIME PRN 10/31/16 04/29/17 History Acetaminophen Tab [Tylenol Tab] 500 mg PO Q4H PRN 03/02/17 04/29/17 History Multivitamin [Multivitamins] 2 tablet PO QAM 03/02/17 04/29/17 History Carbidopa/Levodopa 25-100 [Sinemet 0.5 tablet PO QID 04/29/17 04/29/17 History 25-100] Docusate Sodium 100 mg PO DAILY PRN 04/29/17 04/29/17 History Rasagiline [Azilect] 1 mg PO QAM 04/29/17 04/29/17 History busPIRone [Buspar] 10 mg PO TID 04/29/17 04/29/17 History Allergies Allergy/AdvReac Type Severity Reaction Status Date / Time acetaminophen Allergy RASH Verified 04/29/17 13:49 [From Darvocet-N] azithromycin [From Zithromax] Allergy RASH Verified 04/29/17 13:49 clarithromycin [From Biaxin] Allergy RASH Verified 04/29/17 13:49 Penicillins Allergy RASH Verified 04/29/17 13:49 propoxyphene Allergy RASH Verified 04/29/17 13:49 [From Darvocet-N] Sulfa (Sulfonamide Allergy RASH Verified 04/29/17 13:49 Antibiotics) sulfamethoxazole Allergy RASH Verified 04/29/17 13:49 [From Bactrim] trimethoprim [From Bactrim] Allergy RASH Verified 04/29/17 13:49 codeine AdvReac Unknown/Unable Verified 04/29/17 13:49 to obtain Zolpidem [From Ambien] AdvReac Hallucinati Verified 04/29/17 13:49 ng - Constitutional Constitutional: Present: as per HPI - EENT Eyes: Present: as per HPI Nose, mouth and throat: Present: as per HPI - Cardiovascular Cardiovascular: Present: as per HPI - Respiratory Respiratory: Present: as per HPI - Gastrointestinal Gastrointestinal: Present: as per HPI - Genitourinary Genitourinary: Present: as per HPI - Musculoskeletal Musculoskeletal: Present: as per HPI - Neurological Neurological: Present: as per HPI - Psychiatric Psychiatric: Present: as per HPI - Endocrine Endocrine: Present: as per HPI - Hematologic/Lymphatic Hematologic/Lymphatic: Present: as per HPI Medical,Surgical,& Family Hx - Medical History Cardio: History of: Hypertension Psychological: History of: Anxiety Disorders, Bipolar Disorder, Depression Neurology: History of: Brain Aneurysm, Parkinson's Disease No history of: Seizures HEENT: History of: Eye Problem (Cataract in right eye), HEENT Problems ( Cataract in right eye) No history of: Ear Problem, Dental Problems, Glaucoma, Oral Cancer Endocrine: History of: Thyroid Disorder (Hypothyroidism) Rheumatology: History of;: Gout Respiratory: History of: Asthma (As a child), Pneumonia (As a child) Genitourinary: History of: Prostate Problems (Enlarged prostate- 2009) Gastrointestinal: History of: GERD Musculoskeletal: History of: Musculoskeletal Problems (Chronic knee pain) No history of: Amputation Hematology: No history of: Blood Transfusion Reaction Other: No history of: Anesthesia Reactions, Cancer - Surgical History Cardiac Surgeries: Patient Denies: Femoral-Popliteal Bypass Graft, Cardiac Catheterization, Cardiac Surgery, Carotid Endarterectomy, Internal Defibrillator, Vascular Access Devices Thoracic Surgeries: Patient denies;: Kidney (Renal Surgery), Lithotripsy, Nephrectomy, Organ Transplant, Lobectomy Neurologic Surgeries: Surgical HX of: Brain Aneurysm Patient denies: Neurologic Surgery HEENT Surgeries: Surgical HX of: Thyroid Surgery (1999), Tonsilectomy & Adenoidectomy Patient denies: Carotid Endarterectomy, Eye Surgery Abdominal Surgeries: Surgical HX of: Cholecystectomy (1998), Colonoscopy (2015) , EGD (2004 he thinks) Patient denies: Splenectomy Reproductive Surgeries: Patient denies;: Breast Surgery, Cystoscopy, Genitourinary Surgery, Prostate Surgery, Vasectomy Orthopedic Surgeries: Surgical HX of;: Orthopedic Surgery (b/l hand surgery r/t carpal tunnel syndrome) Patient denies;: Implanted Devices, Spinal Surgery, Total Hip Replacement, Total Knee Replacement - Family History Family History: Reports;: Family Cancer (Maternal grandmother- skin cancer) Denies;: Family Anesthesia Reaction, Family Diabetes, Family Heart Disease, Family Hypertension, Family Psychiatric Problems, Family Stroke - Social History Smoking Status: Former smoker Frequency of Alcohol Use: None Type of Drug Use: None Exam - Constitutional Vitals: Period Temp Pulse Resp BP Sys/Johns Pulse Ox Last 24 Hr 98.0 F-98.0 F 96-96 24-24 133-133/91-91 95 Exam: GENERAL APPEARANCE: alert and oriented, unkempt obese male patient, in no acute distress, lying in bed HEENT: normal. EYES: extraocular movement intact (EOMI), conjunctiva clear, normal. NECK/THYROID: neck supple, full range of motion, no cervical lymphadenopathy, no thyromegaly. HEART: regular rate and rhythm, no murmurs, rubs, gallops. LUNGS: clear to auscultation bilaterally, no wheezes, rales, rhonchi. ABDOMEN: soft, nontender, nondistended, no organomegaly , bowel sounds present. EXTREMITIES: 1+ bilateral pitting pedal edema, right knee exam mildly tender, no gross swelling., No erythema. NEUROLOGIC: alert and oriented 3, cranial nerves 2-12 grossly intact, has resting tremors more in the right upper extremity Results - Labs CBC & BMP: 04/29/17 14:00 04/30/17 02:23
[2017-04-30] MEDS: TAMSULOSIN 0.4 MG CAPSULE PO SCH (10:26)
[2017-04-30] MEDS: ASPIRIN EC 81 MG TABLET PO SCH (10:27)
[2017-04-30] MEDS: PRAMIPEXOLE 1 MG TABLET PO SCH ×3 (10:27→21:45)
[2017-04-30] MEDS: LEVOTHYROXINE 112 MCG TABLET PO SCH (10:27)
[2017-04-30] MEDS: DOCUSATE SODIUM 100 MG CAPSULE PO SCH ×2 (10:27→21:45)
[2017-04-30] MEDS: MULTIVITAMIN (CENTRUM) TABLET PO SCH (10:27)
[2017-04-30] MEDS: busPIRone 10 MG TABLET PO SCH ×3 (10:28→21:45)
[2017-04-30] MEDS: CARBIDOPA/LEVODOPA 25-100 MG TABLET PO SCH ×4 (10:28→21:45)
[2017-04-30] MEDS: RASAGILINE 0.5 MG TABLET PO SCH (10:28)
[2017-04-30] MEDS: PANTOPRAZOLE 40 MG TABLET PO SCH (10:28)
[2017-04-30] MEDS: ENOXAPARIN 40 MG/0.4 ML SYRINGE SUBCUT SCH (15:27)
[2017-05-01] MEDS: RASAGILINE 0.5 MG TABLET PO SCH (08:35)
--- NOTE | 2017-05-01 08:35 | Family Practice Progress Note ---
Family Practice - PN: Subj Interval history: Patient seen and examined on the second floor, has nurse at the bedside giving him a.m. meds. Patient feeling mildly weak, since is lying in the bed. No fever, nausea, vomiting, chest pain, shortness of breath, headaches or dizziness. No overnight events reported by the nurse. Exam (Progress Note) - Constitutional Vitals: Period Temp Pulse Resp BP Sys/Johns Pulse Ox Last 24 Hr 96.2 F-98.1 F 95-100 18-24 121-142/68-87 93-98 Exam: GENERAL APPEARANCE: alert and oriented, unkempt obese male patient, in no acute distress, lying in bed HEENT: normal. EYES: extraocular movement intact (EOMI), conjunctiva clear, normal. NECK/THYROID: neck supple, full range of motion, no cervical lymphadenopathy, no thyromegaly. HEART: regular rate and rhythm, no murmurs, rubs, gallops. LUNGS: clear to auscultation bilaterally, no wheezes, rales, rhonchi. ABDOMEN: soft, nontender, nondistended, no organomegaly , bowel sounds present. EXTREMITIES: 1+ bilateral pitting pedal edema, right knee exam mildly tender, no gross swelling., No erythema. NEUROLOGIC: alert and oriented 3, cranial nerves 2-12 grossly intact, has resting tremors more in the right upper extremity Results - Labs CBC & BMP: 04/29/17 14:00 04/30/17 02:23 Lab Results: I have reviewed the past 24 hour labs Assessment and Plan (1) Recurrent falls Status: Chronic Assessment and plan: Secondary to Parkinson's, on fall precautions, continue Sinemet. Awaiting placement, rn social services consult done 2. Continue rest of his home medications as recommended by neurologist in the past 3. Hypothyroidism, continue Synthroid 4. Hypertension stable, continue IV antihypertensives Current Visit: Yes (2) Hypertension Status: Chronic Current Visit: Yes (3) Hypothyroid Status: Chronic Current Visit: Yes (4) Parkinson's disease (tremor, stiffness, slow motion, unstable posture) Status: Chronic Current Visit: Yes
[2017-05-01] MEDS: MULTIVITAMIN (CENTRUM) TABLET PO SCH (08:36)
[2017-05-01] MEDS: LEVOTHYROXINE 112 MCG TABLET PO SCH (08:36)
[2017-05-01] MEDS: PANTOPRAZOLE 40 MG TABLET PO SCH (08:36)
[2017-05-01] MEDS: ASPIRIN EC 81 MG TABLET PO SCH (08:36)
[2017-05-01] MEDS: CARBIDOPA/LEVODOPA 25-100 MG TABLET PO SCH ×4 (08:36→22:03)
[2017-05-01] MEDS: TAMSULOSIN 0.4 MG CAPSULE PO SCH (08:36)
[2017-05-01] MEDS: busPIRone 10 MG TABLET PO SCH ×3 (08:36→22:04)
[2017-05-01] MEDS: DOCUSATE SODIUM 100 MG CAPSULE PO SCH ×2 (08:36→22:04)
[2017-05-01] MEDS: PRAMIPEXOLE 1 MG TABLET PO SCH ×3 (08:37→22:04)
[2017-05-01] MEDS: ENOXAPARIN 40 MG/0.4 ML SYRINGE SUBCUT SCH (17:04)
[2017-05-01] MEDS: MORPHINE 2 MG/1 ML SYRINGE IV PRN (18:45)
--- NOTE | 2017-05-02 08:43 | Family Practice Progress Note ---
Family Practice - PN: Subj Interval history: PCp : , Patient seen and examined on the second floor, his friend at the bedside, Patient feeling ok, requesting some pain meds for body aches, No fever, nausea, vomiting, chest pain, shortness of breath, headaches or dizziness. No overnight events reported by the nurse. awaiting placement at [facility], social contact worker working on the case, Exam (Progress Note) - Constitutional Vitals: Period Temp Pulse Resp BP Sys/Johns Pulse Ox Last 24 Hr 96.8 F-98.5 F 77-102 18-28 112-147/62-82 92-98 Exam: GENERAL APPEARANCE: alert and oriented,obese male patient, in no acute distress , lying in bed HEENT: normal. EYES: extraocular movement intact (EOMI), conjunctiva clear, normal. NECK/THYROID: neck supple, full range of motion, no cervical lymphadenopathy, no thyromegaly. HEART: regular rate and rhythm, no murmurs, rubs, gallops. LUNGS: clear to auscultation bilaterally, no wheezes, rales, rhonchi. ABDOMEN: soft, nontender, nondistended, no organomegaly , bowel sounds present. EXTREMIT: pitting pedal edema improved, NEUROLOGIC: alert and oriented 3, cranial nerves 2-12 grossly intact, has resting tremors more in the right upper extremity Results - Labs CBC & BMP: 04/29/17 14:00 04/30/17 02:23 Lab Results: I have reviewed the past 24 hour labs Assessment and Plan (1) Recurrent falls Status: Chronic Assessment and plan: Secondary to Parkinson's, on fall precautions, continue Sinemet. Awaiting placement, director social service consult done 2. Continue rest of his home medications as recommended by neurologist in the past 3. Hypothyroidism, continue Synthroid 4. Hypertension stable, continue antihypertensives possible discharge in am, Current Visit: Yes (2) Hypertension Status: Chronic Current Visit: Yes (3) Hypothyroid Status: Chronic Current Visit: Yes (4) Parkinson's disease (tremor, stiffness, slow motion, unstable posture) Status: Chronic Current Visit: Yes
--- NOTE | 2017-05-02 08:50 | Discharge Summary ---
Hospital Course - Hospital Course Hospital Course: Mr. Salomon is a 66 year old male PCP: Dr. Douglas. Follows neurologist, Dr. Shah HPI from admission: Patient was brought into the ER by EMS, for weakness since 3 -4 days, Patient admitted for weakness, recurrent falls, history of parkinsons, History obtained from the patient. history of fall around 9 PM at his home on 04/29/2017( signed refusal at the time with EMS). Patient stays alone in an apartmeNt complex, his family and friends visit him often, uses walker and wheelchair at home. Patient has recurrent falls at home falls approximately 3-4 times per week. He feels overall weak sometimes, As per the patient the last fall he tripped at his home and hit his right knee, no head, neck, back injury, no fever. Patient did not complain of any nausea, vomiting, chest pain, shortness of breath, headaches or dizziness. Hospital course: patient was admitted to the floor, PT/OT was consulted. Fall precautions, IV fluids started, home medications were restarted. Hospital stay was uneventful. Tried for placement in the swing bed, patient would not qualify. Patient refuses to go to detention/long-term care. Patient has home health with physical therapy, willing to continue that. Appointments were made for PCP, neurologist at the time of discharge. . Diagnosis - Discharge Diagnosis (1) Recurrent falls Status: Chronic (2) Hypertension Status: Chronic (3) Hypothyroid Status: Chronic (4) Parkinson's disease (tremor, stiffness, slow motion, unstable posture) Status: Chronic Specialty Discharge - Follow Up or Referrals Follow up with: Pipe Blandon MD [Physician] - 06/15/17 (pt has appt on 06/15/17, keep scheduled appt ) Marquise Douglas DO [Primary Care Provider] - 2 Weeks Discharge Plan - Discharge Data Disposition: Disch To Home/Self Care Condition at Discharge: Stable Discharge Diet: low salt diet Activity: resume usual activities as tolerated - Discharge Medications Continue buPROPion XL [Wellbutrin Xl] 300 mg PO QAM Levothyroxine Sodium 112 mcg PO QAM Pramipexole [Mirapex] 1 mg PO TID #90 tablet Aspirin EC Tab 81 mg PO QAM Tamsulosin HCl 0.4 mg PO 1600 traZODone [Desyrel] 50 mg PO BEDTIME PRN PRN Reason: Sleep busPIRone [Buspar] 10 mg PO TID Carbidopa/Levodopa 25-100 [Sinemet 25-100] 0.5 tablet PO QID Multivitamin [Multivitamins] 2 tablet PO QAM Acetaminophen Tab [Tylenol Tab] 500 mg PO Q4H PRN PRN Reason: Fever, Headache, Mild Pain Docusate Sodium 100 mg PO DAILY PRN PRN Reason: STOOL SOFTENER Rasagiline [Azilect] 1 mg PO QAM - Follow Up or Referral Follow Up: Pipe Blandon MD [Physician] - 06/15/17 (pt has appt on 06/15/17, keep scheduled appt ) Marquise Douglas DO [Primary Care Provider] - 2 Weeks - Forms/Instructions Exam - Constitutional Vitals: Period Temp Pulse Resp BP Sys/Johns Pulse Ox Last 24 Hr 96.8 F-98.5 F 77-102 18-28 112-147/62-82 92-98 Exam: GENERAL APPEARANCE: alert and oriented,obese male patient, in no acute distress , lying in bed HEENT: normal. EYES: extraocular movement intact (EOMI), conjunctiva clear, normal. NECK/THYROID: neck supple, full range of motion, no cervical lymphadenopathy, no thyromegaly. HEART: regular rate and rhythm, no murmurs, rubs, gallops. LUNGS: clear to auscultation bilaterally, no wheezes, rales, rhonchi. ABDOMEN: soft, nontender, nondistended, no organomegaly , bowel sounds present. EXTREMITIES: pitting pedal edema improved, NEUROLOGIC: alert and oriented 3, cranial nerves 2-12 grossly intact, has resting tremors more in the right upper extremity Discharge Results - Impressions From admission, Chest x-ray: Impression: No acute cardiopulmonary disease. EKG: Interpretive Statements SINUS RHYTHM DS: Provider Date of admission: 04/29/17 15:58 Primary care physician: Marquise Douglas DO Attending physician on admission: Marquise Douglas DO Consults: 04/29/17 15:58 Consult to Case Mgmt/Social Srvs [CONS] Routine Reason for Case Mgmt/Social Srvs: Discharge Planning 04/29/17 16:01 Consult to Physical Therapy [CONS] Routine Reason for Physical Therapy: Weakness 04/30/17 08:01 Consult to Physical Therapy [CONS] Routine Reason for Physical Therapy: Weakness 04/30/17 08:05 Consult to Case Mgmt/Social Srvs [CONS] Routine Reason for Case Mgmt/Social Srvs: Swingbed/SNF/[facility] Discharging clinician: Sadiq Pérez MD
[2017-05-02] MEDS ORDERED: traMADol 50 MG TABLET PO ONE (09:00)
[2017-05-02] MEDS: MULTIVITAMIN (CENTRUM) TABLET PO SCH (10:22)
[2017-05-02] MEDS: PRAMIPEXOLE 1 MG TABLET PO SCH ×3 (10:22→20:14)
[2017-05-02] MEDS: DOCUSATE SODIUM 100 MG CAPSULE PO SCH ×2 (10:23→20:15)
[2017-05-02] MEDS: LEVOTHYROXINE 112 MCG TABLET PO SCH (10:23)
[2017-05-02] MEDS: RASAGILINE 0.5 MG TABLET PO SCH (10:23)
[2017-05-02] MEDS: CARBIDOPA/LEVODOPA 25-100 MG TABLET PO SCH ×4 (10:25→20:14)
[2017-05-02] MEDS: TAMSULOSIN 0.4 MG CAPSULE PO SCH (10:25)
[2017-05-02] MEDS: ASPIRIN EC 81 MG TABLET PO SCH (10:26)
[2017-05-02] MEDS: PANTOPRAZOLE 40 MG TABLET PO SCH (10:26)
[2017-05-02] MEDS: busPIRone 10 MG TABLET PO SCH ×3 (10:26→20:15)
[2017-05-02] MEDS: ENOXAPARIN 40 MG/0.4 ML SYRINGE SUBCUT SCH (20:15)
[2017-05-02] MEDS: traMADol 50 MG TABLET PO PRN (23:14)
[2017-05-03 05:04] LABS: Basophils # 0.1 10*3/uL (0.0-0.2); Basophils % 0.6 % (0.0-0.8); Eosinophils # 0.3 10*3/uL (0.0-0.87); Eosinophils % 2.8 % (0.00-10.9); Hematocrit 31.8 VOL% (42.0-52.0); Hemoglobin 10.5 GM/DL (14.0-18.0); Immature Granulocytes % 0.6 %; Immature Granulocytes Absolute 0.06 #; Lymphocytes # 1.4 10*3/uL (1.4-4.0); Lymphocytes % 13.4 % (21.2-54.2); Mean Corpuscular Hemoglobin 30 PG (27-34); Mean Corpuscular Volume 90.3 FL (87-102); Mean Platelet Volume 8.8 FL (9.6-12.0); Monocytes # 1.1 10*3/uL (0.11-0.8); Monocytes % 10.5 % (1.7-12.7); Neutrophils # 7.6 10*3/uL (1.4-7.4); Neutrophils % 72.1 % (38.7-73.9); Platelet Count 355 T/CUMM (130-400); Red Blood Count 3.52 MC/CUMM (3.8-5.5); Red Cell Distribution Width 15.4 % (9.3-17.3); White Blood Count 10.5 T/CUMM (4-12)
[2017-05-03 05:28] LABS: Calcium 8.6 MG/DL (8.5-10.1); Potassium 4.2 MMOL/L (3.5-5.1)
[2017-05-03] MEDS: MULTIVITAMIN (CENTRUM) TABLET PO SCH (10:15)
[2017-05-03] MEDS: PRAMIPEXOLE 1 MG TABLET PO SCH (10:15)
[2017-05-03] MEDS: PANTOPRAZOLE 40 MG TABLET PO SCH (10:16)
[2017-05-03] MEDS: LEVOTHYROXINE 112 MCG TABLET PO SCH (10:16)
[2017-05-03] MEDS: RASAGILINE 0.5 MG TABLET PO SCH (10:16)
[2017-05-03] MEDS: DOCUSATE SODIUM 100 MG CAPSULE PO SCH (10:17)
[2017-05-03] MEDS: TAMSULOSIN 0.4 MG CAPSULE PO SCH (10:17)
[2017-05-03] MEDS: traMADol 50 MG TABLET PO PRN (10:17)
[2017-05-03] MEDS: ASPIRIN EC 81 MG TABLET PO SCH (10:17)
[2017-05-03] MEDS: busPIRone 10 MG TABLET PO SCH (10:17)
[2017-05-03] MEDS: CARBIDOPA/LEVODOPA 25-100 MG TABLET PO SCH (10:22)
[2017-05-03 12:14] VITALS: BP 149/82
== END 2017-05-03 14:10 | disposition home health service (06) ==
LOC: EDUNIT# → N.ED 13:40 → INTOOBSV 15:58 → N.EDINP 15:58 → N.2E 19:07
PROVIDERS: ADMIT Family Medicine; ATTEND Family Medicine

== ENCOUNTER 2017-07-24 13:01 | Inpatient (IN) ==
[2017-07-24] MEDS ORDERED: SODIUM CHLORIDE 0.9% 1,000 ML IV STA (13:32)
[2017-07-24 14:14] LABS: Basophils # 0.1 10*3/uL (0.0-0.2); Basophils % 0.9 % (0.0-0.8); Eosinophils # 0.5 10*3/uL (0.0-0.87); Eosinophils % 4.8 % (0.00-10.9); Hematocrit 28.5 VOL% (42.0-52.0); Hemoglobin 9.2 GM/DL (14.0-18.0); Immature Granulocytes % 0.4 %; Immature Granulocytes Absolute 0.04 #; Lymphocytes # 1.5 10*3/uL (1.4-4.0); Mean Corpuscular HGB Conc 32.3 GM/DL (32-36); Mean Corpuscular Hemoglobin 28 PG (27-34); Mean Corpuscular Volume 86.4 FL (87-102); Mean Platelet Volume 8.5 FL (9.6-12.0); Monocytes # 0.6 10*3/uL (0.11-0.8); Monocytes % 6.5 % (1.7-12.7); Neutrophils # 6.7 10*3/uL (1.4-7.4); Neutrophils % 71.4 % (38.7-73.9); Platelet Count 538 T/CUMM (130-400); Red Cell Distribution Width 16.3 % (9.3-17.3); White Blood Count 9.3 T/CUMM (4-12)
[2017-07-24 14:43] LABS: Albumin 2.6 G/DL (3.4-5.0); Bilirubin,Total 0.4 MG/DL (0.2-1.0); Calcium 8.5 MG/DL (8.5-10.1); Osmolality,Calculated 277.5 MOS/KG (273-304); Potassium 3.8 MMOL/L (3.5-5.1); Total Protein 7.2 G/DL (6.4-8.3)
[2017-07-24 15:45] LABS: Apearance,Urine CLEAR (Clear); Bilirubin,Urine Negative (Negative); Blood, Urine Small mg/dL (Negative); Glucose,Urine (UA) Negative (Negative); Hyaline Casts,Urine 4 /LPF (0-3); Ketones,Urine Negative (Negative); Mucus,Urine Occasional /LPF (Occasional); Nitrite,Urine Negative (Negative); Protein,Urine Negative; RBC,Urine 6 /HPF (0-4); Squamous Epithelial Cell,Urine Occasional /HPF (0-10); Urine Color Yellow (Yellow); Urine Specific Gravity 1.009 (1.001-1.035); Urine Urobilinogen < 2.0 EU/DL (0.2-1.0); WBC,Urine 2 /HPF (0-6)
[2017-07-24] MEDS ORDERED: ACETAMINOPHEN 325 MG TABLET PO PRN (17:38)
[2017-07-24] MEDS ORDERED: ONDANSETRON 4 MG/2 ML VIAL IV PRN ×2 (17:38→20:31)
[2017-07-24] MEDS ORDERED: traZODone 50 MG TABLET PO PRN ×2 (17:40→20:23)
[2017-07-24] MEDS ORDERED: DOCUSATE SODIUM 100 MG CAPSULE PO PRN (17:40)
[2017-07-24] MEDS ORDERED: SODIUM CHLORIDE 0.9% 1,000 ML IV SCH (18:00)
[2017-07-24] MEDS ORDERED: PRAMIPEXOLE 1 MG TABLET PO SCH (21:00)
[2017-07-24] MEDS ORDERED: busPIRone 10 MG TABLET PO SCH (21:00)
[2017-07-24] MEDS ORDERED: DOCUSATE SODIUM 100 MG CAPSULE PO SCH (21:00)
[2017-07-24] MEDS ORDERED: CARBIDOPA/LEVODOPA 25-100 MG TABLET PO SCH (21:00)
[2017-07-24] MEDS: DOCUSATE SODIUM 100 MG CAPSULE PO SCH (21:53)
[2017-07-24] MEDS: SODIUM CHLORIDE 0.9% 1,000 ML IV SCH (21:53)
[2017-07-24] MEDS: busPIRone 10 MG TABLET PO SCH (21:53)
[2017-07-24] MEDS: PRAMIPEXOLE 1 MG TABLET PO SCH (21:54)
[2017-07-24] MEDS: CARBIDOPA/LEVODOPA 25-100 MG TABLET PO SCH (21:54)
[2017-07-25] MEDS: SODIUM CHLORIDE 0.9% 1,000 ML IV SCH ×3 (05:49→23:24)
[2017-07-25 05:50] LABS: Basophils # 0.1 10*3/uL (0.0-0.2); Basophils % 0.7 % (0.0-0.8); Eosinophils # 0.5 10*3/uL (0.0-0.87); Eosinophils % 5.4 % (0.00-10.9); Hematocrit 27.6 VOL% (42.0-52.0); Hemoglobin 8.7 GM/DL (14.0-18.0); Immature Granulocytes % 0.5 %; Immature Granulocytes Absolute 0.05 #; Lymphocytes # 1.4 10*3/uL (1.4-4.0); Lymphocytes % 15.1 % (21.2-54.2); Mean Corpuscular HGB Conc 31.5 GM/DL (32-36); Mean Corpuscular Hemoglobin 27 PG (27-34); Mean Corpuscular Volume 87.1 FL (87-102); Mean Platelet Volume 8.7 FL (9.6-12.0); Monocytes # 0.6 10*3/uL (0.11-0.8); Monocytes % 6.5 % (1.7-12.7); Neutrophils # 6.8 10*3/uL (1.4-7.4); Neutrophils % 71.8 % (38.7-73.9); Platelet Count 486 T/CUMM (130-400); Red Blood Count 3.17 MC/CUMM (3.8-5.5); Red Cell Distribution Width 16.3 % (9.3-17.3); White Blood Count 9.4 T/CUMM (4-12)
[2017-07-25] MEDS: LEVOTHYROXINE 112 MCG TABLET PO SCH (05:52)
[2017-07-25 06:18] LABS: Calcium 8.2 MG/DL (8.5-10.1); Osmolality,Calculated 279.4 MOS/KG (273-304); Potassium 4.1 MMOL/L (3.5-5.1)
[2017-07-25] MEDS ORDERED: LEVOTHYROXINE 112 MCG TABLET PO SCH (07:00)
[2017-07-25] MEDS ORDERED: MULTIVITAMIN (CENTRUM) TABLET PO SCH (09:00)
[2017-07-25] MEDS ORDERED: ASPIRIN EC 81 MG TABLET PO SCH (09:00)
[2017-07-25] MEDS ORDERED: RASAGILINE 0.5 MG TABLET PO SCH (09:00)
[2017-07-25] MEDS ORDERED: PANTOPRAZOLE 40 MG TABLET PO SCH (09:00)
[2017-07-25] MEDS: DOCUSATE SODIUM 100 MG CAPSULE PO SCH ×2 (10:15→20:50)
[2017-07-25 10:33] LABS: Folate 10.9 NG/ML (5.4-24.0)
[2017-07-25] MEDS: CARBIDOPA/LEVODOPA 25-100 MG TABLET PO SCH ×4 (10:36→20:51)
[2017-07-25] MEDS: PRAMIPEXOLE 1 MG TABLET PO SCH ×3 (10:36→20:50)
[2017-07-25] MEDS: ASPIRIN EC 81 MG TABLET PO SCH (10:37)
[2017-07-25] MEDS: MULTIVITAMIN (CENTRUM) TABLET PO SCH (10:37)
[2017-07-25] MEDS: PANTOPRAZOLE 40 MG TABLET PO SCH (10:37)
[2017-07-25] MEDS: RASAGILINE 0.5 MG TABLET PO SCH (10:38)
[2017-07-25] MEDS: busPIRone 10 MG TABLET PO SCH ×3 (10:39→20:50)
[2017-07-25] MEDS ORDERED: TAMSULOSIN 0.4 MG CAPSULE PO SCH (16:00)
[2017-07-25] MEDS: TAMSULOSIN 0.4 MG CAPSULE PO SCH (16:22)
[2017-07-25] MEDS: ACETAMINOPHEN 325 MG TABLET PO PRN (18:41)
[2017-07-26] MEDS: ACETAMINOPHEN 325 MG TABLET PO PRN (01:56)
[2017-07-26] MEDS: LEVOTHYROXINE 112 MCG TABLET PO SCH (11:22)
[2017-07-26] MEDS: ASPIRIN EC 81 MG TABLET PO SCH (11:22)
[2017-07-26] MEDS: PANTOPRAZOLE 40 MG TABLET PO SCH (11:23)
[2017-07-26] MEDS: busPIRone 10 MG TABLET PO SCH (11:23)
[2017-07-26] MEDS: RASAGILINE 0.5 MG TABLET PO SCH (11:23)
[2017-07-26] MEDS: CARBIDOPA/LEVODOPA 25-100 MG TABLET PO SCH ×2 (11:23→14:46)
[2017-07-26] MEDS: TAMSULOSIN 0.4 MG CAPSULE PO SCH (11:24)
[2017-07-26] MEDS: DOCUSATE SODIUM 100 MG CAPSULE PO SCH (11:24)
[2017-07-26] MEDS: MULTIVITAMIN (CENTRUM) TABLET PO SCH (11:24)
[2017-07-26] MEDS: PRAMIPEXOLE 1 MG TABLET PO SCH (11:24)
[2017-07-26 12:17] VITALS: BP 123/80
[2017-07-26] MEDS: SODIUM CHLORIDE 0.9% 1,000 ML IV SCH (14:46)
== END 2017-07-26 13:35 | DRG 57 ==
LOC: EDBD → EDUNIT# → N.ED 13:01 → N.EDINP 17:38 → N.2E 20:02
PROVIDERS: ADMIT Family Medicine; ATTEND Family Medicine

== ENCOUNTER 2017-09-06 10:52 | Observation (INO) ==
[2017-09-06] MEDS ORDERED: ENOXAPARIN 100 MG/ML SYRINGE SUBCUT STA (11:40)
[2017-09-06 11:48] LABS: Basophils # 0.1 10*3/uL (0.0-0.2); Basophils % 0.9 % (0.0-0.8); Eosinophils # 0.6 10*3/uL (0.0-0.87); Hematocrit 35.8 VOL% (42.0-52.0); Hemoglobin 11.1 GM/DL (14.0-18.0); Immature Granulocytes % 0.4 %; Immature Granulocytes Absolute 0.04 #; Lymphocytes # 1.8 10*3/uL (1.4-4.0); Lymphocytes % 19.8 % (21.2-54.2); Mean Corpuscular Hemoglobin 28 PG (27-34); Mean Corpuscular Volume 88.8 FL (87-102); Mean Platelet Volume 8.6 FL (9.6-12.0); Monocytes # 0.6 10*3/uL (0.11-0.8); Monocytes % 6.6 % (1.7-12.7); Neutrophils # 6.2 10*3/uL (1.4-7.4); Neutrophils % 66.3 % (38.7-73.9); Platelet Count 488 T/CUMM (130-400); Red Blood Count 4.03 MC/CUMM (3.8-5.5); Red Cell Distribution Width 17.2 % (9.3-17.3); White Blood Count 9.3 T/CUMM (4-12)
[2017-09-06 12:07] LABS: Alanine Aminotransferase 9 U/L (16-61); Albumin 2.8 G/DL (3.4-5.0); Alkaline Phosphatase 142 U/L (45-117); Aspartate Amino Transferase 11 U/L (0-37); Bilirubin,Total < 0.39 MG/DL (0.2-1.0); Blood Urea Nitrogen 12 MG/DL (7-18); Glucose 93 MG/DL (74-106); Osmolality,Calculated 276.5 MOS/KG (273-304); Sodium 139 MMOL/L (136-145); Total Protein 7.9 G/DL (6.4-8.3)
[2017-09-06] MEDS ORDERED: ENOXAPARIN 120 MG/0.8 ML SYRINGE SUBCUT ONE (12:33)
[2017-09-06 16:25] LABS: Apearance,Urine CLEAR (Clear); Bilirubin,Urine Negative (Negative); Blood, Urine Negative (Negative); Glucose,Urine (UA) Negative (Negative); Ketones,Urine Negative (Negative); Nitrite,Urine Negative (Negative); Protein,Urine Negative; RBC,Urine 4 /HPF (0-4); Urine Color Yellow (Yellow); Urine Specific Gravity 1.034 (1.001-1.035); Urine Urobilinogen < 2.0 EU/DL (0.2-1.0); WBC,Urine 1 /HPF (0-6)
[2017-09-06] MEDS ORDERED: ONDANSETRON 4 MG/2 ML VIAL IV PRN (17:29)
[2017-09-06] MEDS ORDERED: ACETAMINOPHEN 325 MG TABLET PO PRN (17:29)
[2017-09-06] MEDS: DOCUSATE SODIUM 100 MG CAPSULE PO SCH (21:05)
[2017-09-06] MEDS: CARBIDOPA/LEVODOPA 25-100 MG TABLET PO SCH (23:31)
[2017-09-06] MEDS: cefTRIAXone 1,000 MG in SYRINGE 1 EACH IV SCH (23:31)
[2017-09-06] MEDS: ARIPiprazole 5 MG TABLET PO SCH (23:31)
[2017-09-07] MEDS: LEVOTHYROXINE 112 MCG TABLET PO SCH (05:49)
[2017-09-07] MEDS ORDERED: ENOXAPARIN 30 MG/0.3 ML SYRINGE SUBCUT SCH (09:00)
[2017-09-07] MEDS ORDERED: DOCUSATE SODIUM 100 MG CAPSULE PO SCH (09:00)
[2017-09-07] MEDS: RASAGILINE 0.5 MG TABLET PO SCH (10:32)
[2017-09-07] MEDS: MULTIVITAMIN (CENTRUM) TABLET PO SCH (10:33)
[2017-09-07] MEDS: FUROSEMIDE 40 MG TABLET PO SCH (10:33)
[2017-09-07] MEDS: ASPIRIN EC 81 MG TABLET PO SCH (10:33)
[2017-09-07] MEDS: busPIRone 10 MG TABLET PO SCH ×3 (10:33→20:51)
[2017-09-07] MEDS: PANTOPRAZOLE 40 MG TABLET PO SCH (10:33)
[2017-09-07] MEDS: SERTRALINE 50 MG TABLET PO SCH (10:34)
[2017-09-07] MEDS: DOCUSATE SODIUM 100 MG CAPSULE PO SCH ×2 (10:34→20:53)
[2017-09-07] MEDS: MULTIVITAMIN (BEROCCA) TABLET PO SCH (10:34)
[2017-09-07] MEDS: CARBIDOPA/LEVODOPA 25-100 MG TABLET PO SCH ×4 (10:36→20:51)
[2017-09-07] MEDS ORDERED: REGADENOSON 0.4 MG/5 ML SYRINGE IV ONE (12:52)
[2017-09-07] MEDS ORDERED: TAMSULOSIN 0.4 MG CAPSULE PO SCH (16:00)
[2017-09-07] MEDS: ARIPiprazole 5 MG TABLET PO SCH (20:51)
[2017-09-07] MEDS: cefTRIAXone 1,000 MG in SYRINGE 1 EACH IV SCH (21:01)
[2017-09-08 05:13] LABS: Basophils # 0.1 10*3/uL (0.0-0.2); Basophils % 0.4 % (0.0-0.8); Eosinophils # 0.2 10*3/uL (0.0-0.87); Eosinophils % 1.9 % (0.00-10.9); Hematocrit 36.9 VOL% (42.0-52.0); Hemoglobin 11.5 GM/DL (14.0-18.0); Immature Granulocytes % 0.4 %; Immature Granulocytes Absolute 0.05 #; Lymphocytes # 1.3 10*3/uL (1.4-4.0); Lymphocytes % 10.7 % (21.2-54.2); Mean Corpuscular HGB Conc 31.2 GM/DL (32-36); Mean Corpuscular Hemoglobin 27 PG (27-34); Mean Corpuscular Volume 88.1 FL (87-102); Mean Platelet Volume 8.8 FL (9.6-12.0); Monocytes # 0.7 10*3/uL (0.11-0.8); Monocytes % 5.4 % (1.7-12.7); Neutrophils # 9.8 10*3/uL (1.4-7.4); Neutrophils % 81.2 % (38.7-73.9); Platelet Count 508 T/CUMM (130-400); Red Blood Count 4.19 MC/CUMM (3.8-5.5); Red Cell Distribution Width 17.2 % (9.3-17.3); White Blood Count 12.1 T/CUMM (4-12)
[2017-09-08 05:36] LABS: Calcium 9.1 MG/DL (8.5-10.1); Magnesium 2.1 MG/DL (1.8-2.4); Osmolality,Calculated 276.8 MOS/KG (273-304); Potassium 4.6 MMOL/L (3.5-5.1)
[2017-09-08] MEDS: LEVOTHYROXINE 112 MCG TABLET PO SCH (06:05)
[2017-09-08] MEDS ORDERED: ENOXAPARIN 40 MG/0.4 ML SYRINGE SUBCUT SCH (09:00)
[2017-09-08] MEDS: MULTIVITAMIN (BEROCCA) TABLET PO SCH (10:17)
[2017-09-08] MEDS: RASAGILINE 0.5 MG TABLET PO SCH (10:17)
[2017-09-08] MEDS: CARBIDOPA/LEVODOPA 25-100 MG TABLET PO SCH (10:17)
[2017-09-08] MEDS: MULTIVITAMIN (CENTRUM) TABLET PO SCH (10:17)
[2017-09-08] MEDS: DOCUSATE SODIUM 100 MG CAPSULE PO SCH (10:17)
[2017-09-08] MEDS: PANTOPRAZOLE 40 MG TABLET PO SCH (10:18)
[2017-09-08] MEDS: SERTRALINE 50 MG TABLET PO SCH (10:18)
[2017-09-08] MEDS: ASPIRIN EC 81 MG TABLET PO SCH (10:18)
[2017-09-08] MEDS: FUROSEMIDE 40 MG TABLET PO SCH (10:18)
[2017-09-08] MEDS: busPIRone 10 MG TABLET PO SCH (10:18)
[2017-09-08 12:14] VITALS: BP 119/72
== END 2017-09-08 13:16 ==
LOC: EDUNIT# → N.ED 10:52 → N.EDINP 10:52 → N.TELES 17:22
PROVIDERS: ADMIT Family Medicine; ATTEND Family Medicine

== ENCOUNTER 2019-01-09 12:21 | Observation (INO) ==
[2019-01-09] MEDS ORDERED: NITROGLYCERIN 2% OINT 1 INCH/GM PACK TOP STA (12:50)
[2019-01-09] MEDS ORDERED: ONDANSETRON 4 MG/2 ML VIAL IV STA (12:50)
[2019-01-09] MEDS ORDERED: ASPIRIN 325 MG TABLET PO STA (12:50)
[2019-01-09 13:39] LABS: Basophils # 0.1 10*3/uL (0.0-0.2); Basophils % 0.7 % (0.0-0.8); Eosinophils # 0.5 10*3/uL (0.0-0.87); Hematocrit 39.2 VOL% (42.0-52.0); Hemoglobin 12.9 GM/DL (14.0-18.0); Immature Granulocytes % 0.5 %; Immature Granulocytes Absolute 0.05 #; Lymphocytes # 1.8 10*3/uL (1.4-4.0); Lymphocytes % 16.8 % (21.2-54.2); Mean Corpuscular HGB Conc 32.9 GM/DL (32-36); Mean Corpuscular Volume 100.3 FL (87-102); Mean Platelet Volume 8.8 FL (9.6-12.0); Monocytes % 6.9 % (1.7-12.7); Neutrophils % 70.1 % (38.7-73.9); Platelet Count 330 T/CUMM (130-400); Red Blood Count 3.91 MC/CUMM (3.8-5.5); Red Cell Distribution Width 13.4 % (9.3-17.3); White Blood Count 10.6 T/CUMM (4-12)
[2019-01-09 13:41] LABS: Apearance,Urine CLEAR (Clear); Bilirubin,Urine Negative (Negative); Blood, Urine Small mg/dL (Negative); Glucose,Urine (UA) Negative (Negative); Hyaline Casts,Urine 4 /LPF (0-3); Ketones,Urine Negative (Negative); Nitrite,Urine Negative (Negative); Protein,Urine Negative; RBC,Urine 4 /HPF (0-4); Squamous Epithelial Cell,Urine Occasional /HPF (0-10); Urine Color Yellow (Yellow); Urine Specific Gravity 1.009 (1.001-1.035); Urine Urobilinogen < 2.0 EU/DL (0.2-1.0); WBC,Urine 2 /HPF (0-6)
[2019-01-09 13:47] LABS: INR 0.9; PT Patient Result 10.2 SECS; Partial Thromboplastin Time 28.7 SECS (0-40)
[2019-01-09 14:01] LABS: Alanine Aminotransferase < 9 U/L (16-61); Albumin 3.3 G/DL (3.4-5.0); Alkaline Phosphatase 170 U/L (45-117); Aspartate Amino Transferase 8 U/L (0-37); Bilirubin,Total < 0.39 MG/DL (0.2-1.0); Blood Urea Nitrogen 19 MG/DL (7-18); Calcium 8.7 MG/DL (8.5-10.1); Glucose 102 MG/DL (74-106); Osmolality,Calculated 278.5 MOS/KG (273-304); Total Protein 8.1 G/DL (6.4-8.3)
[2019-01-09] MEDS: MORPHINE 4 MG/1 ML VIAL IV STA ×2 (16:58→17:00)
[2019-01-09] MEDS ORDERED: ENOXAPARIN 100 MG/ML SYRINGE SUBCUT ONE (17:02)
[2019-01-09] MEDS ORDERED: ENOXAPARIN 30 MG/0.3 ML SYRINGE SUBCUT ONE (17:07)
[2019-01-09] MEDS ORDERED: ACETAMINOPHEN 325 MG TABLET PO PRN (17:07)
[2019-01-09] MEDS: SODIUM CHLORIDE 0.9% 1,000 ML IV SCH (17:18)
[2019-01-09] MEDS ORDERED: MAGNESIUM HYDROXIDE SUSP 30 ML UDCUP PO PRN (19:04)
[2019-01-09] MEDS ORDERED: CARBOXYMETHYLCELLULOSE 1% OPH SOLN BOTH EYES PRN (21:00)
[2019-01-09] MEDS: busPIRone 15 MG TABLET PO SCH (21:27)
[2019-01-09] MEDS: ZALEPLON 5 MG CAPSULE PO SCH (21:27)
[2019-01-09] MEDS: CARBIDOPA/LEVODOPA 25-100 MG TABLET PO SCH (21:27)
[2019-01-09] MEDS: ENOXAPARIN 40 MG/0.4 ML SYRINGE SUBCUT SCH (21:27)
[2019-01-09] MEDS: MELATONIN 3 MG TABLET PO SCH (21:27)
[2019-01-09] MEDS: DOCUSATE SODIUM 100 MG CAPSULE PO SCH (21:27)
[2019-01-10] MEDS: BACITRACIN OPH OINT 3.5 GM TUBE BOTH EYES SCH ×2 (00:10→22:12)
[2019-01-10] MEDS: SODIUM CHLORIDE 0.9% 1,000 ML IV SCH ×3 (00:38→13:46)
[2019-01-10] MEDS: LEVOTHYROXINE 112 MCG TABLET PO SCH (07:05)
[2019-01-10] MEDS ORDERED: FOLITAB PO SCH (09:00)
[2019-01-10] MEDS ORDERED: PANTOPRAZOLE 40 MG TABLET PO SCH (09:00)
[2019-01-10] MEDS: FLUTICASONE 50 MCG NASAL SPRAY 16 GM BOTTLE BOTH NARES SCH (10:03)
[2019-01-10] MEDS: ASPIRIN EC 81 MG TABLET PO SCH (10:04)
[2019-01-10] MEDS: POLYETHYLENE GLYCOL POWDER 17 GM PACK PO SCH (10:04)
[2019-01-10] MEDS: MELOXICAM 7.5 MG TABLET PO SCH (10:04)
[2019-01-10] MEDS: CARBIDOPA/LEVODOPA 25-100 MG TABLET PO SCH ×4 (10:04→22:13)
[2019-01-10] MEDS: FUROSEMIDE 40 MG TABLET PO SCH (10:05)
[2019-01-10] MEDS: SIMVASTATIN 10 MG TABLET PO SCH (10:05)
[2019-01-10] MEDS: MULTIVITAMIN (CENTRUM) TABLET PO SCH (10:05)
[2019-01-10] MEDS: ALLOPURINOL 100 MG TABLET PO SCH (10:05)
[2019-01-10] MEDS: DOCUSATE SODIUM 100 MG CAPSULE PO SCH ×2 (10:05→22:13)
[2019-01-10] MEDS: PANTOPRAZOLE 40 MG TABLET PO SCH (10:05)
[2019-01-10] MEDS: TAMSULOSIN 0.4 MG CAPSULE PO SCH (10:06)
[2019-01-10] MEDS: RASAGILINE 0.5 MG TABLET PO SCH (10:06)
[2019-01-10] MEDS: busPIRone 15 MG TABLET PO SCH ×3 (10:11→22:16)
[2019-01-10] MEDS: traMADol 50 MG TABLET PO SCH ×2 (17:10→22:13)
[2019-01-10] MEDS: CLORAZEPATE 7.5 MG TABLET PO SCH ×2 (17:10→22:13)
[2019-01-10] MEDS ORDERED: CLORAZEPATE 7.5 MG TABLET PO SCH (21:00)
[2019-01-10] MEDS ORDERED: traMADol 50 MG TABLET PO SCH (21:00)
[2019-01-10] MEDS: MELATONIN 3 MG TABLET PO SCH (22:12)
[2019-01-10] MEDS: ZALEPLON 5 MG CAPSULE PO SCH (22:13)
[2019-01-10] MEDS: ENOXAPARIN 40 MG/0.4 ML SYRINGE SUBCUT SCH (22:14)
[2019-01-11] MEDS: ONDANSETRON 4 MG/2 ML VIAL IV PRN ×2 (05:52→23:05)
[2019-01-11] MEDS: LEVOTHYROXINE 112 MCG TABLET PO SCH (05:52)
[2019-01-11] MEDS ORDERED: REGADENOSON 0.4 MG/5 ML SYRINGE IV ONE (09:09)
[2019-01-11] MEDS: FLUTICASONE 50 MCG NASAL SPRAY 16 GM BOTTLE BOTH NARES SCH (10:48)
[2019-01-11] MEDS: RASAGILINE 0.5 MG TABLET PO SCH (10:49)
[2019-01-11] MEDS: busPIRone 15 MG TABLET PO SCH ×3 (10:50→23:07)
[2019-01-11] MEDS: PANTOPRAZOLE 40 MG TABLET PO SCH (10:50)
[2019-01-11] MEDS: CLORAZEPATE 7.5 MG TABLET PO SCH ×2 (10:51→23:01)
[2019-01-11] MEDS: ASPIRIN EC 81 MG TABLET PO SCH (10:51)
[2019-01-11] MEDS: TAMSULOSIN 0.4 MG CAPSULE PO SCH (10:52)
[2019-01-11] MEDS: DOCUSATE SODIUM 100 MG CAPSULE PO SCH ×2 (10:52→23:00)
[2019-01-11] MEDS: CARBIDOPA/LEVODOPA 25-100 MG TABLET PO SCH ×4 (10:52→23:00)
[2019-01-11] MEDS: FUROSEMIDE 40 MG TABLET PO SCH (10:53)
[2019-01-11] MEDS: SIMVASTATIN 10 MG TABLET PO SCH (10:53)
[2019-01-11] MEDS: traMADol 50 MG TABLET PO SCH ×2 (10:53→23:06)
[2019-01-11] MEDS: POLYETHYLENE GLYCOL POWDER 17 GM PACK PO SCH (10:54)
[2019-01-11] MEDS: MULTIVITAMIN (CENTRUM) TABLET PO SCH (13:15)
[2019-01-11] MEDS: MELOXICAM 7.5 MG TABLET PO SCH (13:15)
[2019-01-11] MEDS: ALLOPURINOL 100 MG TABLET PO SCH (13:16)
[2019-01-11] MEDS: BACITRACIN OPH OINT 3.5 GM TUBE BOTH EYES SCH (23:00)
[2019-01-11] MEDS: MELATONIN 3 MG TABLET PO SCH (23:01)
[2019-01-11] MEDS: ZALEPLON 5 MG CAPSULE PO SCH (23:01)
[2019-01-12 06:16] LABS: Osmolality,Calculated 281.5 MOS/KG (273-304)
[2019-01-12 06:23] LABS: Basophils # 0.1 10*3/uL (0.0-0.2); Basophils % 0.7 % (0.0-0.8); Eosinophils # 0.8 10*3/uL (0.0-0.87); Eosinophils % 6.8 % (0.00-10.9); Hematocrit 38.2 VOL% (42.0-52.0); Hemoglobin 12.4 GM/DL (14.0-18.0); Immature Granulocytes % 0.4 %; Immature Granulocytes Absolute 0.05 #; Lymphocytes # 2.1 10*3/uL (1.4-4.0); Lymphocytes % 17.7 % (21.2-54.2); Mean Corpuscular HGB Conc 32.5 GM/DL (32-36); Mean Corpuscular Volume 101.3 FL (87-102); Mean Platelet Volume 9.3 FL (9.6-12.0); Monocytes % 6.9 % (1.7-12.7); Neutrophils % 67.5 % (38.7-73.9); Platelet Count 322 T/CUMM (130-400); Red Blood Count 3.77 MC/CUMM (3.8-5.5); Red Cell Distribution Width 13.5 % (9.3-17.3); White Blood Count 12.1 T/CUMM (4-12)
[2019-01-12] MEDS: LEVOTHYROXINE 112 MCG TABLET PO SCH (06:23)
[2019-01-12] MEDS ORDERED: LACTATED RINGERS 500 ML IV SCH (08:00)
[2019-01-12] MEDS ORDERED: PROPOFOL 200 MG/20 ML VIAL IV ONE (09:00)
[2019-01-12] MEDS ORDERED: LIDOCAINE 2% 5 ML VIAL ONE (09:00)
[2019-01-12] MEDS: MULTIVITAMIN (CENTRUM) TABLET PO SCH (15:03)
[2019-01-12] MEDS: traMADol 50 MG TABLET PO SCH ×2 (15:04→20:29)
[2019-01-12] MEDS: ALLOPURINOL 100 MG TABLET PO SCH (15:04)
[2019-01-12] MEDS: MELOXICAM 7.5 MG TABLET PO SCH (15:04)
[2019-01-12] MEDS: CARBIDOPA/LEVODOPA 25-100 MG TABLET PO SCH ×4 (15:04→20:29)
[2019-01-12] MEDS: PANTOPRAZOLE 40 MG TABLET PO SCH (15:05)
[2019-01-12] MEDS: TAMSULOSIN 0.4 MG CAPSULE PO SCH (15:05)
[2019-01-12] MEDS: DOCUSATE SODIUM 100 MG CAPSULE PO SCH ×2 (15:05→20:29)
[2019-01-12] MEDS: FUROSEMIDE 40 MG TABLET PO SCH ×2 (15:05→15:10)
[2019-01-12] MEDS: RASAGILINE 0.5 MG TABLET PO SCH (15:05)
[2019-01-12] MEDS: CLORAZEPATE 7.5 MG TABLET PO SCH ×2 (15:05→20:30)
[2019-01-12] MEDS: ASPIRIN EC 81 MG TABLET PO SCH (15:06)
[2019-01-12] MEDS: busPIRone 15 MG TABLET PO SCH ×3 (15:06→20:29)
[2019-01-12] MEDS: FLUTICASONE 50 MCG NASAL SPRAY 16 GM BOTTLE BOTH NARES SCH (15:07)
[2019-01-12] MEDS: POLYETHYLENE GLYCOL POWDER 17 GM PACK PO SCH (15:07)
[2019-01-12] MEDS: SIMVASTATIN 10 MG TABLET PO SCH (15:20)
[2019-01-12] MEDS: ZALEPLON 5 MG CAPSULE PO SCH (20:29)
[2019-01-12] MEDS: MELATONIN 3 MG TABLET PO SCH (20:30)
[2019-01-12] MEDS: BACITRACIN OPH OINT 3.5 GM TUBE BOTH EYES SCH (20:30)
[2019-01-13] MEDS: LEVOTHYROXINE 112 MCG TABLET PO SCH (05:04)
[2019-01-13] MEDS: MELOXICAM 7.5 MG TABLET PO SCH (09:56)
[2019-01-13] MEDS: RASAGILINE 0.5 MG TABLET PO SCH (09:56)
[2019-01-13] MEDS: CARBIDOPA/LEVODOPA 25-100 MG TABLET PO SCH ×4 (09:57→20:48)
[2019-01-13] MEDS: ASPIRIN EC 81 MG TABLET PO SCH (09:57)
[2019-01-13] MEDS: MULTIVITAMIN (CENTRUM) TABLET PO SCH (09:58)
[2019-01-13] MEDS: DOCUSATE SODIUM 100 MG CAPSULE PO SCH ×2 (09:58→20:48)
[2019-01-13] MEDS: ALLOPURINOL 100 MG TABLET PO SCH (09:58)
[2019-01-13] MEDS: traMADol 50 MG TABLET PO SCH ×2 (09:59→20:48)
[2019-01-13] MEDS: busPIRone 15 MG TABLET PO SCH ×3 (10:00→20:48)
[2019-01-13] MEDS: CLORAZEPATE 7.5 MG TABLET PO SCH ×2 (10:00→20:48)
[2019-01-13] MEDS: TAMSULOSIN 0.4 MG CAPSULE PO SCH (10:01)
[2019-01-13] MEDS: FUROSEMIDE 40 MG TABLET PO SCH (10:01)
[2019-01-13] MEDS: PANTOPRAZOLE 40 MG TABLET PO SCH (10:02)
[2019-01-13] MEDS: FLUTICASONE 50 MCG NASAL SPRAY 16 GM BOTTLE BOTH NARES SCH (10:04)
[2019-01-13] MEDS: SIMVASTATIN 10 MG TABLET PO SCH (10:07)
[2019-01-13] MEDS: POLYETHYLENE GLYCOL POWDER 17 GM PACK PO SCH (10:11)
[2019-01-13] MEDS: cefTRIAXone 1,000 MG in SYRINGE 1 EACH IV SCH (10:16)
[2019-01-13] MEDS: BACITRACIN OPH OINT 3.5 GM TUBE BOTH EYES SCH (20:48)
[2019-01-13] MEDS: ZALEPLON 5 MG CAPSULE PO SCH (20:48)
[2019-01-13] MEDS: MELATONIN 3 MG TABLET PO SCH (20:48)
[2019-01-14] MEDS: LEVOTHYROXINE 112 MCG TABLET PO SCH (06:19)
[2019-01-14] MEDS: SIMVASTATIN 10 MG TABLET PO SCH (08:32)
[2019-01-14] MEDS: POLYETHYLENE GLYCOL POWDER 17 GM PACK PO SCH (08:32)
[2019-01-14] MEDS: MELOXICAM 7.5 MG TABLET PO SCH (08:33)
[2019-01-14] MEDS: TAMSULOSIN 0.4 MG CAPSULE PO SCH (08:34)
[2019-01-14] MEDS: MULTIVITAMIN (CENTRUM) TABLET PO SCH (08:34)
[2019-01-14] MEDS: CLORAZEPATE 7.5 MG TABLET PO SCH ×2 (08:34→20:58)
[2019-01-14] MEDS: CARBIDOPA/LEVODOPA 25-100 MG TABLET PO SCH ×4 (08:35→20:58)
[2019-01-14] MEDS: DOCUSATE SODIUM 100 MG CAPSULE PO SCH ×2 (08:35→20:58)
[2019-01-14] MEDS: traMADol 50 MG TABLET PO SCH ×2 (08:35→20:58)
[2019-01-14] MEDS: PANTOPRAZOLE 40 MG TABLET PO SCH (08:35)
[2019-01-14] MEDS: ASPIRIN EC 81 MG TABLET PO SCH (08:35)
[2019-01-14] MEDS: ALLOPURINOL 100 MG TABLET PO SCH (08:36)
[2019-01-14] MEDS: FUROSEMIDE 40 MG TABLET PO SCH (08:37)
[2019-01-14] MEDS: FLUTICASONE 50 MCG NASAL SPRAY 16 GM BOTTLE BOTH NARES SCH (08:37)
[2019-01-14] MEDS: RASAGILINE 0.5 MG TABLET PO SCH (08:39)
[2019-01-14] MEDS: busPIRone 15 MG TABLET PO SCH ×3 (08:40→20:58)
[2019-01-14] MEDS: cefTRIAXone 1,000 MG in SYRINGE 1 EACH IV SCH (09:36)
[2019-01-14] MEDS: ONDANSETRON 4 MG/2 ML VIAL IV PRN (15:03)
[2019-01-14] MEDS ORDERED: ALUMINUM/MAGNES/SIMETH MAX STR 30 ML UDCUP PO PRN (19:44)
[2019-01-14] MEDS: ZALEPLON 5 MG CAPSULE PO SCH (20:58)
[2019-01-14] MEDS: MELATONIN 3 MG TABLET PO SCH (20:59)
[2019-01-14] MEDS: BACITRACIN OPH OINT 3.5 GM TUBE BOTH EYES SCH (20:59)
[2019-01-15] MEDS: LEVOTHYROXINE 112 MCG TABLET PO SCH (05:25)
[2019-01-15] MEDS: TAMSULOSIN 0.4 MG CAPSULE PO SCH (09:57)
[2019-01-15] MEDS: FUROSEMIDE 40 MG TABLET PO SCH (09:57)
[2019-01-15] MEDS: ALLOPURINOL 100 MG TABLET PO SCH (09:57)
[2019-01-15] MEDS: SIMVASTATIN 10 MG TABLET PO SCH (09:57)
[2019-01-15] MEDS: CARBIDOPA/LEVODOPA 25-100 MG TABLET PO SCH ×3 (09:57→17:49)
[2019-01-15] MEDS: DOCUSATE SODIUM 100 MG CAPSULE PO SCH (09:57)
[2019-01-15] MEDS: PANTOPRAZOLE 40 MG TABLET PO SCH (09:57)
[2019-01-15] MEDS: MULTIVITAMIN (CENTRUM) TABLET PO SCH (09:57)
[2019-01-15] MEDS: MELOXICAM 7.5 MG TABLET PO SCH (09:57)
[2019-01-15] MEDS: ASPIRIN EC 81 MG TABLET PO SCH (09:58)
[2019-01-15] MEDS: CLORAZEPATE 7.5 MG TABLET PO SCH (09:58)
[2019-01-15] MEDS: cefTRIAXone 1,000 MG in SYRINGE 1 EACH IV SCH (09:58)
[2019-01-15] MEDS: traMADol 50 MG TABLET PO SCH (09:59)
[2019-01-15] MEDS: POLYETHYLENE GLYCOL POWDER 17 GM PACK PO SCH (09:59)
[2019-01-15] MEDS: FLUTICASONE 50 MCG NASAL SPRAY 16 GM BOTTLE BOTH NARES SCH (10:04)
[2019-01-15] MEDS: busPIRone 15 MG TABLET PO SCH ×2 (10:08→15:25)
[2019-01-15 12:33] VITALS: BP 150/95
[2019-01-15] MEDS: RASAGILINE 0.5 MG TABLET PO SCH (13:06)
== END 2019-01-15 15:33 ==
LOC: N.ED 12:21 → N.EDINP 12:21 → N.TELEN 15:57
PROVIDERS: ADMIT Family Medicine; ATTEND Family Medicine

== ENCOUNTER 2021-11-27 10:35 | Observation (INO) ==
[2021-11-27 10:54] LABS: Basophils # 0.1 10*3/uL (0.0-0.2); Basophils % 0.6 % (0.0-0.8); Eosinophils # 0.6 10*3/uL (0.0-0.87); Hematocrit 34.2 VOL% (42.0-52.0); Hemoglobin 11.4 GM/DL (14.0-18.0); Immature Granulocytes % 0.5 %; Immature Granulocytes Absolute 0.06 #; Lymphocytes # 1.4 10*3/uL (1.4-4.0); Lymphocytes % 10.9 % (21.2-54.2); Mean Corpuscular HGB Conc 33.3 GM/DL (32-36); Mean Corpuscular Volume 99.7 FL (87-102); Mean Platelet Volume 8.8 FL (9.6-12.0); Monocytes % 6.1 % (1.7-12.7); Neutrophils % 76.9 % (38.7-73.9); Platelet Count 273 T/CUMM (130-400); Red Blood Count 3.43 MC/CUMM (3.8-5.5); Red Cell Distribution Width 13.1 % (9.3-17.3); White Blood Count 12.7 T/CUMM (4-12)
[2021-11-27 11:14] LABS: Albumin 2.8 G/DL (3.4-5.0); Bilirubin,Total 0.5 MG/DL (0.20-1.00); Calcium 8.4 MG/DL (8.5-10.1); Osmolality,Calculated 277.8 MOS/KG (273-304); Potassium 4.4 MMOL/L (3.5-5.1); Total Protein 6.6 G/DL (6.4-8.2)
[2021-11-27] MEDS ORDERED: GLUCAGON 1 MG VIAL IM PRN (12:26)
[2021-11-27] MEDS ORDERED: ACETAMINOPHEN 325 MG TABLET PO PRN (12:27)
[2021-11-27] MEDS ORDERED: ONDANSETRON 4 MG/2 ML VIAL IV PRN (12:27)
[2021-11-27] MEDS ORDERED: DEXTROSE 10% 250 ML BAG IV PRN (12:33)
[2021-11-27] MEDS ORDERED: ENOXAPARIN 40 MG/0.4 ML SYRINGE SUBCUT SCH (13:00)
[2021-11-27] MEDS: LACTATED RINGERS 1,000 ML IV SCH (15:05)
[2021-11-28] MEDS: LACTATED RINGERS 1,000 ML IV SCH (01:01)
[2021-11-28 06:18] LABS: Basophils # 0.1 10*3/uL (0.0-0.2); Basophils % 1.2 % (0.0-0.8); Eosinophils # 0.7 10*3/uL (0.0-0.87); Eosinophils % 7.5 % (0.00-10.9); Hematocrit 34.8 VOL% (42.0-52.0); Hemoglobin 11.6 GM/DL (14.0-18.0); Immature Granulocytes % 0.5 %; Immature Granulocytes Absolute 0.04 #; Lymphocytes # 2.1 10*3/uL (1.4-4.0); Lymphocytes % 24.4 % (21.2-54.2); Mean Corpuscular HGB Conc 33.3 GM/DL (32-36); Mean Corpuscular Volume 100.9 FL (87-102); Monocytes % 8.8 % (1.7-12.7); Neutrophils % 57.6 % (38.7-73.9); Platelet Count 282 T/CUMM (130-400); Red Blood Count 3.45 MC/CUMM (3.8-5.5); Red Cell Distribution Width 13.1 % (9.3-17.3); White Blood Count 8.7 T/CUMM (4-12)
[2021-11-28 06:26] LABS: Osmolality,Calculated 276.8 MOS/KG (273-304); Potassium 4.3 MMOL/L (3.5-5.1)
[2021-11-28 06:34] LABS: Free T4 (Free Thyroxine) 1.04 NG/DL (0.76-1.46); Thyroid Stimulating Hormone 2.38 uIU/ml (0.358-3.74)
[2021-11-28] MEDS ORDERED: ALBUTEROL 2.5 MG/3 ML NEB RESP TX ONE (07:13)
[2021-11-28 12:37] VITALS: BP 165/96
== END 2021-11-28 13:56 ==
LOC: EDUNIT# → EDBD → N.ED 10:35 → N.EDINP 10:35 → SUATTDRO 12:26 → N.TELEN 14:05
PROVIDERS: ADMIT Internal Medicine; ATTEND Phlebology